=== PATIENT | female | born 1935 | race Caucasian/White ===

== ENCOUNTER → 2016-12-11 | Outpatient (CLI) | payer MEDICARE, OTHER ==
[2016-09-28 11:25] VITALS: BP 201/89
[~2016-12-11] MED LIST: ASPI-482 PO; CALC600T4 PO; HYDR-971 PO; LEVO75TA PO; LOVA20TA2 PO; MULT-658 PO; NAPR220C4 PO; NIFE10CA2 PO; NIFE5POW MC
--- NOTE | 2016-12-11 13:13 | KCIC ---
Exam: Abdomen ultrasound Indication:Reason For Study Reason: generalized abdominal pain / Spl. Instructions: / History: Technique: Multiple realtime grayscale sonographic images were obtained over the abdomen. Static images were submitted for interpretation. Findings: Visualized portions of the pancreas are unremarkable. The IVC is patent. The aorta is normal in caliber. The liver is normal in size measuring 13.2 cm. The hepatic echotexture is within normal limits. No focal lesions are identified. The gallbladder is nondistended. There is no evidence for cholelithiasis. There is no wall thickening, or pericholecystic fluid. The common bile duct is within normal limits measuring 2 mm in diameter. The Right kidney is normal in size measuring 9.5 x 4.2 x 4.5 cm. There is no evidence for mass, nephrolithiasis, or hydronephrosis. The Left kidney is normal in size measuring 9.8 x 5.0 x 4.6 cm. There is a septated cyst in the lower pole measuring 6.0 centimeters. The spleen is normal in size measuring 8.0 cm. Splenic calcified granulomas are noted. No ascites is identified. Impression: There is a septated 6 centimeter left renal cyst. This is Bosniak category 2 F. Follow-up is advised. Electronically signed by: Roscoe Chahal (Dec 11, 2016 13:12:23)
== END | disposition home or self-care (01) ==
LOC: KCIC US 09:39
PROVIDERS: ATTEND Family Medicine
DX: R10.84 Generalized abdominal pain (principal); N28.1 Cyst of kidney, acquired
CPT/HCPCS: 76700

== ENCOUNTER → 2017-01-06 | Outpatient (CLI) | payer MEDICARE, OTHER ==
[2016-09-28 11:25] VITALS: BP 201/89
[~2017-01-06] MED LIST changes: +CONTRAST GIVEN MC PRN; +IOHEXOL 300 MG/ML 75 ML VIAL IV ONE
[2017-01-06 07:34] LABS: CREATININE 0.9 mg/dL (0.6-1.0); GFR 59.8
--- NOTE | 2017-01-06 10:10 | RAD ---
EXAM: CT abdomen/pelvis with and without contrast. HISTORY: Hematuria. Abdominal pain. TECHNIQUE: Computed tomography of the abdomen and pelvis was performed before and after the intravenous administration of 60 mL Isovue-370. COMPARISON: None. FINDINGS: Lung windows through the visualized portions of the bases reveal mild atelectasis. Bone windows reveal no suspicious lesions. There are changes of lumbar instrumented posterior fusion. There is a moderate to severe compression fracture at T11 with a residual open cleft. A mild compression fracture is suspected at T12, also likely subacute. There is a moderate compression fracture at L1 that appears chronic. There is grade 1 anterolisthesis at L4-5. Degenerative disc disease is severe diffusely. There is a moderate hiatal hernia. There are calcified granulomas in the liver and spleen. The gallbladder is unremarkable. There is a fluid density mass within the pancreatic uncinate process that measures 12 x 8 mm. No solid pancreatic lesion is seen. The pancreatic duct is not dilated. A nodule in the left adrenal gland measures 16 x 13 mm and 6 Hounsfield units in attenuation. This is consistent with a benign adenoma. A 2 mm nodule centrally in the right adrenal gland is also consistent with an adenoma. There are changes of mesh repair of the anterior abdominal wall. There are no pathologically enlarged lymph nodes. Diffuse colonic diverticulosis moderate without acute inflammation. The appendix is not inflamed. There are no solid renal lesions. A cyst at the left renal lower pole measures 4.6 x 3.2 cm. There are no renal or ureteral calculi. The ureters are segmentally opacified, but no urothelial lesions are seen. The bladder is unremarkable. IMPRESSION: 1. No solid renal lesions or clear urothelial lesions. No nephroureterolithiasis. 2. A moderate to severe compression fracture at T11 has a residual open cleft. Other compression deformities as above. 3. 12 mm fluid density mass within the pancreatic uncinate process. This is likely a cyst or sidebranch intraductal papillary mucinous neoplasm. MRCP with/without contrast could further evaluate at this size if long-term stability is not already known, versus follow-up in 6-12 months. 4. Bilateral adrenal nodules are consistent with benign adenomas. 5. Moderate hiatal hernia. *One or more of the following individualized dose reduction techniques were utilized for this examination: 1. Automated exposure control. 2. Adjustment of the mA and/or kV according to patient size. 3. Use of iterative reconstruction technique.
== END | disposition home or self-care (01) ==
LOC: CT 07:01
PROVIDERS: ATTEND Urology
DX: R10.9 Unspecified abdominal pain (principal); R31.9 Hematuria, unspecified
CPT/HCPCS: 36415; 74178; 82565; 84520; Q9967

== ENCOUNTER → 2017-01-10 | Outpatient (CLI) | payer MEDICARE, OTHER ==
[2016-09-28 11:25] VITALS: BP 201/89
[~2017-01-10] MED LIST changes: -CONTRAST GIVEN MC PRN; -IOHEXOL 300 MG/ML 75 ML VIAL IV ONE
--- NOTE | 2017-01-13 10:15 | RAD ---
MRCP, 01/10/2017: History: Epigastric pain, cystic pancreatic lesion Imaging of the upper abdomen was performed in axial and coronal planes utilizing a variety of imaging sequences including T2 weighted, fat suppressed T2 weighted and opposed phase gradient echo sequences. 2-D and 3-D MRCP sequences were obtained with MIP reconstructions of the biliary tract produced. The gallbladder is unremarkable. The bile ducts are of normal caliber. No biliary tract calculi are seen. The pancreatic duct in the body and tail of the pancreas is of normal size. There is an 18 x 9 mm, slightly lobulated, cystic appearing structure present in the medial aspect of the pancreatic head involving the uncinate process, as also noted on the recent CT study. It lies adjacent to the distal pancreatic duct in the head of the pancreas. The pancreatic duct at this level is not clearly defined. A clear connection between this cystic structure in the distal pancreatic duct is not evident. Incidental note is made of a 4.2 cm cyst in the lower pole of the left kidney. There is an additional smaller 6 mm cyst also noted laterally. A small left adrenal nodule demonstrates signal dropout on the out of phase gradient-echo sequence compatible with a benign adenoma. Postsurgical changes are noted in the lumbar spine. IMPRESSION: 1. No biliary tract abnormality is detected. 2. Small cystic structure in the medial aspect of the pancreatic head which lies adjacent to the distal pancreatic duct. Diagnostic considerations include a sidebranch IPMN(Intraductal papillary mucinous neoplasm) versus a simple pancreatic cyst. MR imaging with contrast may be useful for further characterization, if clinically indicated. At this age, CT surveillance may be a reasonable alternative.
== END | disposition home or self-care (01) ==
LOC: MRI 07:32
PROVIDERS: ATTEND Internal Medicine Gastroenterology
DX: R10.13 Epigastric pain (principal)
CPT/HCPCS: 74181

== ENCOUNTER → 2017-01-17 | Day surgery (SDC) | payer MEDICARE, OTHER ==
[~2017-01-17] MED LIST changes: +CHLO25TA PO; +FENTANYL PF 100 MCG/2 ML VIAL. IV PRN; +HYDROMORPHONE 2 MG/ML VIAL. IV PRN; +IV RINGERS,LACTATED 1000ML 1,000 ML IV SCH; +LIDOCAINE 1% 1 ML SYRINGE. ID PRN; +LIDOCAINE 2% PF Vial for OR 5 ML VIAL. ONE; +MORPHINE SULFATE 2 MG/ML DISP.SYRIN. IV PRN; +NIFE30TA2 PO; +ONDANSETRON PF 4 MG/2 ML VIAL. IV PRN; +PROCHLORPERAZINE 10 MG/2 ML VIAL. IV PRN; +PROPOFOL 20 ML IV ONE
[2017-01-17 07:34] VITALS: BP 150/75
== END | disposition home or self-care (01) ==
LOC: ENDOS 06:03
PROVIDERS: ATTEND Internal Medicine Gastroenterology
DX: K29.50 Unspecified chronic gastritis without bleeding (principal); E78.00 Pure hypercholesterolemia, unspecified; I10 Essential (primary) hypertension; K21.9 Gastro-esophageal reflux disease without esophagitis; M19.90 Unspecified osteoarthritis, unspecified site; E03.9 Hypothyroidism, unspecified; Z96.653 Presence of artificial knee joint, bilateral; Z87.39 Personal history of other diseases of the musculoskeletal system and connective tissue; Z72.89 Other problems related to lifestyle; Z85.3 Personal history of malignant neoplasm of breast
CPT/HCPCS: 43235; J2704

== ENCOUNTER 2017-03-05 10:21 | Inpatient (IN) | payer MEDICARE, OTHER ==
[2017-03-05] VITALS (9 sets, daily range): BP systolic 133–161; BP diastolic 60–73
[~2017-03-05] VITALS: Ht 152.4 cm; Wt 66.4 kg
[~2017-03-05 10:21] MED LIST changes: +CEFAZOLIN 2GM PREMIX 50 ML IV ONE; -HYDROMORPHONE 2 MG/ML VIAL. IV PRN; +HYDROmorphone 2 MG/ML VIAL IV PRN; -LIDOCAINE 2% PF Vial for OR 5 ML VIAL. ONE; -PROPOFOL 20 ML IV ONE
[2017-03-05] MEDS ORDERED: CEFAZOLIN 2GM PREMIX 50 ML IV ONE (11:36)
[2017-03-05] MEDS ORDERED: SEVOFLURANE 61 TO 120 MINUTES. IH ONE (11:39)
[2017-03-05] MEDS ORDERED: GLYCOPYRROLATE 1 MG/5 ML VIAL. ONE (11:40)
[2017-03-05] MEDS ORDERED: FENTANYL PF 100 MCG/2 ML VIAL. ONE (11:40)
[2017-03-05] MEDS ORDERED: ONDANSETRON PF 4 MG/2 ML VIAL. ONE (11:41)
[2017-03-05] MEDS ORDERED: ROCURONIUM 50 MG/5 ML VIAL. ONE (11:41)
[2017-03-05] MEDS ORDERED: DEXAMETHASONE SOD PHOS 20 MG/5 ML VIAL. ONE (11:41)
[2017-03-05] MEDS ORDERED: LIDOCAINE 2% 100 MG/5 ML SYRINGE. ONE (11:41)
[2017-03-05] MEDS ORDERED: NEOSTIGMINE METHYLSULFATE 5 MG/5 ML SYRINGE. ONE (11:41)
[2017-03-05] MEDS ORDERED: BUPIVAC MPF-EPI 0.5%-1:200000 30 ML VIAL. ONE (11:52)
--- NOTE | 2017-03-05 12:22 | PDOC ---
SURGICAL PROGRESS NOTE Subjective Pre-Op Note 81 yo F with periumbilical pain and Left sided pain TO OR for lap exploration and removal of mesh R/B/A d/w pt and pt's family Office note H&P reviewed and unchanged Vital Signs Vital Signs Date Time Temp Pulse Resp B/P Pulse Ox O2 Delivery O2 Flow Rate FiO2 03/05/17 11:00 98.5 81 20 179/90 97 Room Air 98.5 KATHLEEN DUMONT MD Mar 05, 2017 12:22
[2017-03-05] MEDS ORDERED: PHENYLEPHRINE in 0.9% NACL PF 1 MG/10 ML DISP.SYRIN. IV ONE (12:25)
[2017-03-05] MEDS ORDERED: LABETALOL 20 MG/4 ML DISP.SYRIN. ONE (13:20)
[2017-03-05] MEDS: IV NORMAL SALINE 1000ML BAG 1,000 ML IV SCH (13:26)
[2017-03-05] MEDS: IV RINGERS,LACTATED 1000ML 1,000 ML IV SCH ×2 (13:26→23:26)
[2017-03-05] MEDS ORDERED: NALOXONE 0.4 MG/ML VIAL. IV PRN (13:30)
[2017-03-05] MEDS: ENOXAPARIN 40 MG/0.4 ML SYRINGE. SQ SCH (13:30)
[2017-03-05] MEDS ORDERED: ONDANSETRON PF 4 MG/2 ML VIAL. IV PRN (13:30)
[2017-03-05] MEDS ORDERED: 0.9 % SODIUM CHLORIDE 10 ML DISP.SYRIN. IV PRN (13:30)
--- NOTE | 2017-03-05 13:36 | PDOC ---
BRIEF OPERATIVE NOTE Pre-Op Diagnosis abd pain Post-Op Diagnosis same Procedure Performed laparoscopic converted to open exploration, removal of mesh, enterotomy repair Surgeon Stuart Anesthesia Type: General, Local Blood Loss 50 IV Fluid 750 Specimens Obtained mesh Findings adherent mesh to bowel Complications enterotomy (mesh removal) Additional Remarks [id number] KATHLEEN DUMONT MD Mar 05, 2017 13:36
[2017-03-05] MEDS: FENTANYL PF 100 MCG/2 ML VIAL. IV PRN ×2 (13:45→13:55)
--- NOTE | 2017-03-05 14:57 | RAD ---
Portable abdomen, 03/05/2017: History: NG tube placement An NG tube is in place extending into the lateral aspect of the proximal body of the stomach. The abdominal gas pattern is unremarkable. There is no evidence of organomegaly. Calcified splenic and hepatic granulomata are present in the upper abdomen. Postsurgical changes are again noted in the lower lumbar spine. IMPRESSION: 1. The NG tube extends into the body of the stomach. 2. No acute abdominal abnormality is detected.
--- NOTE | 2017-03-05 23:35 | OP ---
DATE OF SURGERY: 03/05/2017 REFERRING PHYSICIAN: Dr. Nino Miramontes. PREOPERATIVE DIAGNOSIS: Abdominal pain. POSTOPERATIVE DIAGNOSIS: Abdominal pain, adherent mesh. PROCEDURES: Laparoscopic converted open exploration, lysis of adhesions, removal of old mesh, enterotomy repair. SURGEON: Tres Davidson M.D. ESTIMATED BLOOD LOSS: 50 mL. IV FLUIDS: 750 mL. COMPLICATIONS: Enterotomy necessary for mesh removal. INDICATIONS: An 81-year-old female presents with complaints of abdominal pain ____ appears to be associated with her previous abdominal wall mesh. Subsequently, it was felt patient best be served by laparoscopic versus open exploration, and removal of old mesh adhesion. The patient and patient's were informed of risks, benefits, and alternatives to procedure, risks including but not limited to bleeding, infection, damage to surrounding structures, risk of anesthesia, risk of an open procedure, and risk of hernia recurrence. The patient and patient's appeared to understanding, their insightful questions were answered and they agreed to proceed. PROCEDURE IN DETAIL: After obtaining informed consent, the patient was taken to the operating room, induced under general endotracheal anesthetic. The patient was prepped and draped in the usual fashion of the anterior abdominal wall. Half percent Marcaine with epinephrine was injected in the right lower quadrant. Incision was made using 15 blade scalpel. A 5-mm nonbladed trocar was introduced in the abdominal cavity under vision of laparoscope and pneumoperitoneum was established. Additional 5 mm port was placed in the right upper quadrant, all under direct vision of laparoscope. The abdominal cavity was explored. There were extensive adhesions of the small bowel and omentum to the mesh and the middle abdomen. The remaining abdomen was unremarkable and there was no evidence of pathology aside from this. Specifically, there was no evidence of pathology in the left side of the abdomen, which is concerning for possible source of pain to the patient. Given these findings, it was felt patient best be served by removal of old mesh and lysis of adhesions. Small medium-sized midline incision was made using electrocautery. Subcutaneous tissue was divided using electrocautery. The mesh was immediately encountered and was carefully and sharply dissected out circumferentially moving off the fascia anteriorly. There was specifically a small ____ on the left side which appeared to be clearly distal ileum, although not terminal ileum which is already adherent to the small bowel, this still required an enterotomy to resect this off the underlying mesh. The mesh was removed, passed off field and sent to pathology for evaluation. The small enterotomy was then repaired using multiple interrupted 3-0 Vicryl stitches. There was no evidence of leakage from this. The small bowel was run from ligament of Treitz to terminal ileum, found to be no evidence of other pathology. The transverse colon was the area that was uninvolved, although I did have evidence of diverticulosis. The omentum had been very much involved in the process. Hemostasis was obtained using electrocautery. There was no evidence of bleeding or other pathology at the time of closure. All bowel was returned to the abdominal cavity. The fascia was reapproximated in midline using 2 looped 0 PDS stitches in continuous fashion. Subcutaneous tissues were reapproximated using 3-0 Vicryl. Skin incisions were reapproximated using 4-0 Monocryl in subcuticular fashion. Sterile dressings were placed over the wound. The patient tolerated the procedure well and sent to recovery room in stable condition. All counts were corrected. There were no immediate complications aside from the enterotomy. Thank you for allowing me to participate in the care of this pleasant patient. LEIGHTON GARRETT MD DR: MILLICENT/cameron JOB#: [id number] / [id number] Nino Bro MD
[2017-03-06 03:23] VITALS: BP 158/76
[2017-03-06 04:51] LABS: BASO % 0 % (0-3); EOS % 0 % (0-3); HEMATOCRIT 37.8 % (36.0-47.0); HEMOGLOBIN 12.5 g/dL (12.0-15.5); LYMPH # 0.9 x10^3/uL (1.0-4.8); LYMPH % 7 % (24-48); MEAN CORPUSCULAR HEMOGLOBIN 30 pg (25-35); MEAN CORPUSCULAR HGB CONC 33 g/dL (31-37); MEAN CORPUSCULAR VOLUME 90 fL (79-100); MONO % 8 % (0-9); NEUT % 86 % (31-73); PLATELET COUNT 192 x10^3/uL (140-400); RED BLOOD COUNT 4.22 x10^6/uL (3.50-5.40); RED CELL DISTRIBUTION WIDTH 14.2 % (11.5-14.5); WHITE BLOOD COUNT 13.3 x10^3/uL (4.0-11.0)
[2017-03-06 05:43] LABS: CALCIUM 8.7 mg/dL (8.5-10.1); CREATININE 0.8 mg/dL (0.6-1.0); GFR 68.5; POTASSIUM 3.6 mmol/L (3.5-5.1)
[2017-03-06 07:00] VITALS: BP 158/68
[2017-03-06 07:56] LABS: PLT ESTIMATE ADEQUATE (ADEQUATE)
[2017-03-06 07:57] LABS: OVALOCYTES FEW
--- NOTE | 2017-03-06 08:51 | PDOC ---
SURGICAL PROGRESS NOTE Subjective pain managed urinating no nausea Vital Signs Vital Signs Date Time Temp Pulse Resp B/P Pulse Ox O2 Delivery O2 Flow Rate FiO2 03/06/17 07:00 98.4 85 20 158/68 93 Room Air 98.4 03/06/17 03:23 2.0 I&O Intake and Output 03/06/17 06:59 Intake Total 850 ml Output Total 260 ml Balance 590 ml Intake Oral 0 ml IV Total 850 ml Output Urine Total 210 ml Estimated Blood Loss 50 ml # Voids 7 PATIENT HAS A MONGE: No General: Alert, Oriented X3, Cooperative, No acute distress HEENT: Other (NG tannish drainage ) Abdomen: Soft, Other (incision dressing dry, incisional TTP) Labs Laboratory Tests Test 03/06/17 04:06 White Blood Count 13.3x10^3/uL (4.0-11.0) Red Blood Count 4.22x10^6/uL (3.50-5.40) Hemoglobin 12.5g/dL (12.0-15.5) Hematocrit 37.8% (36.0-47.0) Mean Corpuscular Volume 90fL (79-100) Mean Corpuscular Hemoglobin 30pg (25-35) Mean Corpuscular Hemoglobin Concent 33g/dL (31-37) Red Cell Distribution Width 14.2% (11.5-14.5) Platelet Count 192x10^3/uL (140-400) Neutrophils (%) (Auto) 86% (31-73) Lymphocytes (%) (Auto) 7% (24-48) Monocytes (%) (Auto) 8% (0-9) Eosinophils (%) (Auto) 0% (0-3) Basophils (%) (Auto) 0% (0-3) Neutrophils # (Auto) 11.4x10^3uL (1.8-7.7) Lymphocytes # (Auto) 0.9x10^3/uL (1.0-4.8) Monocytes # (Auto) 1.0x10^3/uL (0.0-1.1) Eosinophils # (Auto) 0.0x10^3/uL (0.0-0.7) Basophils # (Auto) 0.0x10^3/uL (0.0-0.2) Segmented Neutrophils % 83% (35-66) Band Neutrophils % 6% (0-9) Lymphocytes % 4% (24-48) Monocytes % 7% (0-10) Platelet Estimate Adequate (ADEQUATE) Ovalocytes Few Sodium Level 143mmol/L (136-145) Potassium Level 3.6mmol/L (3.5-5.1) Chloride Level 106mmol/L (98-107) Carbon Dioxide Level 27mmol/L (21-32) Anion Gap 10 (6-14) Blood Urea Nitrogen 13mg/dL (7-20) Creatinine 0.8mg/dL (0.6-1.0) Estimated GFR (Cockcroft-Gault) 68.5 Glucose Level 132mg/dL (70-99) Calcium Level 8.7mg/dL (8.5-10.1) Laboratory Tests Test 03/06/17 04:06 White Blood Count 13.3x10^3/uL (4.0-11.0) Red Blood Count 4.22x10^6/uL (3.50-5.40) Hemoglobin 12.5g/dL (12.0-15.5) Hematocrit 37.8% (36.0-47.0) Mean Corpuscular Volume 90fL (79-100) Mean Corpuscular Hemoglobin 30pg (25-35) Mean Corpuscular Hemoglobin Concent 33g/dL (31-37) Red Cell Distribution Width 14.2% (11.5-14.5) Platelet Count 192x10^3/uL (140-400) Neutrophils (%) (Auto) 86% (31-73) Lymphocytes (%) (Auto) 7% (24-48) Monocytes (%) (Auto) 8% (0-9) Eosinophils (%) (Auto) 0% (0-3) Basophils (%) (Auto) 0% (0-3) Neutrophils # (Auto) 11.4x10^3uL (1.8-7.7) Lymphocytes # (Auto) 0.9x10^3/uL (1.0-4.8) Monocytes # (Auto) 1.0x10^3/uL (0.0-1.1) Eosinophils # (Auto) 0.0x10^3/uL (0.0-0.7) Basophils # (Auto) 0.0x10^3/uL (0.0-0.2) Segmented Neutrophils % 83% (35-66) Band Neutrophils % 6% (0-9) Lymphocytes % 4% (24-48) Monocytes % 7% (0-10) Platelet Estimate Adequate (ADEQUATE) Ovalocytes Few Sodium Level 143mmol/L (136-145) Potassium Level 3.6mmol/L (3.5-5.1) Chloride Level 106mmol/L (98-107) Carbon Dioxide Level 27mmol/L (21-32) Anion Gap 10 (6-14) Blood Urea Nitrogen 13mg/dL (7-20) Creatinine 0.8mg/dL (0.6-1.0) Estimated GFR (Cockcroft-Gault) 68.5 Glucose Level 132mg/dL (70-99) Calcium Level 8.7mg/dL (8.5-10.1) Problem List Problems Medical Problems: (1) Abdominal pain Status: Acute Assessment/Plan POD#1 lap converted to open exploration, mesh removal, enterotomy repair continue NG, await bowel function ambulate PT/OT Problems: [employer] Mar 06, 2017 08:51
[2017-03-06] MEDS ORDERED: PHENOL ORAL SPRAY 177ML BOTTLE. PO PRN (10:45)
[2017-03-06 11:00] VITALS: BP 161/67
[2017-03-06] MEDS: IV RINGERS,LACTATED 1000ML 1,000 ML IV SCH ×2 (11:31→20:14)
--- NOTE | 2017-03-06 12:55 | PATHOLOGY ---
PATHOLOGY REPORT * * * * * * * * FINAL DIAGNOSIS: Segment of mesh, clinically from abdomen (Gross only). (JPM:mgpadmini; d/t: 03/06/17) REPORT ELECTRONICALLY SIGNED BY: Lucas Rivero M.D. DATE/TIME: 03/06/2017 12:54 * * * * * * * * GROSS PATHOLOGY: The specimen is received in formalin labeled "Jose Luis Deshpande, brian". Received is a segment of white-dunham mesh with attached pink-hooks to yellow-dunham soft tissue measuring 9.2 x 7.5 x 2.1 cm in aggregate dimensions. Gross photographs are taken. Sections are not submitted. (CAA; 03/06/2017) INITIAL CPT CODE(S): A; 90375 Professional services performed by [email or web address] [place] [address] Technical services performed by [facility] at [address] [place] [address]. SPECIMEN(S) RECEIVED: A.Mesh CLINICAL HISTORY: Abdominal pain, retained mesh PATIENT: JOSE LUIS DESHPANDE /AGE: 806/28/1935 (Age: 81) PATIENT #: [id number] ALT CASE #: SPECIMEN COLLECTION DATE: 03/05/2017 SPECIMEN RECEIVED DATE: 03/05/2017 [facility] - [address] [place] [address] - PHONE: [phone] * * * END OF REPORT * * *
[2017-03-06] MEDS: IV NORMAL SALINE 1000ML BAG 1,000 ML IV SCH (13:26)
[2017-03-06] MEDS: ENOXAPARIN 40 MG/0.4 ML SYRINGE. SQ SCH (13:51)
[2017-03-06 14:53] VITALS: BP 189/94
--- NOTE | 2017-03-06 17:00 | OP ---
DATE OF SURGERY: 03/05/2017 REFERRING PHYSICIAN: Dr. Nino Miramontes. PREOPERATIVE DIAGNOSIS: Abdominal pain. POSTOPERATIVE DIAGNOSIS: Abdominal pain, adherent mesh. PROCEDURES: Laparoscopic converted open exploration, lysis of adhesions, removal of old mesh, enterotomy repair. SURGEON: Tres Dumont M.D. ESTIMATED BLOOD LOSS: 50 mL. IV FLUIDS: 750 mL. COMPLICATIONS: Enterotomy necessary for mesh removal. INDICATIONS: An 81-year-old female presents with complaints of abdominal pain which appears to be associated with her previous abdominal wall mesh. Subsequently, it was felt patient best be served by laparoscopic versus open exploration, and removal of old mesh adhesion. The patient and patient's were informed of risks, benefits, and alternatives to procedure, risks including but not limited to bleeding, infection, damage to surrounding structures, risk of anesthesia, risk of an open procedure, and risk of hernia recurrence. The patient and patient's appeared to understanding, their insightful questions were answered and they agreed to proceed. PROCEDURE IN DETAIL: After obtaining informed consent, the patient was taken to the operating room, induced under general endotracheal anesthetic. The patient was prepped and draped in the usual fashion of the anterior abdominal wall. Half percent Marcaine with epinephrine was injected in the right lower quadrant. Incision was made using 15 blade scalpel. A 5-mm nonbladed trocar was introduced in the abdominal cavity under vision of laparoscope and pneumoperitoneum was established. Additional 5 mm port was placed in the right upper quadrant, all under direct vision of laparoscope. The abdominal cavity was explored. There were extensive adhesions of the small bowel and omentum to the mesh and the middle abdomen. The remaining abdomen was unremarkable and there was no evidence of pathology aside from this. Specifically, there was no evidence of pathology in the left side of the abdomen, which is concerning for possible source of pain to the patient. Given these findings, it was felt patient best be served by removal of old mesh and lysis of adhesions. Small medium-sized midline incision was made using electrocautery. Subcutaneous tissue was divided using electrocautery. The mesh was immediately encountered and was carefully and sharply dissected out circumferentially moving off the fascia anteriorly. There was specifically a small area on the left side of the mesh which appeared to be clearly distal ileum, although not terminal ileum which is already adherent to the small bowel, this still required an enterotomy to resect this off the underlying mesh. The mesh was removed, passed off field and sent to pathology for evaluation. The small enterotomy was then repaired using multiple interrupted 3-0 Vicryl stitches. There was no evidence of leakage from this. The small bowel was run from ligament of Treitz to terminal ileum, found to be no evidence of other pathology. The transverse colon was the area that was uninvolved, although I did have evidence of diverticulosis. The omentum had been very much involved in the process. Hemostasis was obtained using electrocautery. There was no evidence of bleeding or other pathology at the time of closure. All bowel was returned to the abdominal cavity. The fascia was reapproximated in midline using 2 looped 0 PDS stitches in continuous fashion. Subcutaneous tissues were reapproximated using 3-0 Vicryl. Skin incisions were reapproximated using 4-0 Monocryl in subcuticular fashion. Sterile dressings were placed over the wound. The patient tolerated the procedure well and sent to recovery room in stable condition. All counts were corrected. There were no immediate complications aside from the enterotomy. Thank you for allowing me to participate in the care of this pleasant patient. TRES DUMONT MD DR: KEVIN/cameron JOB#: [id number] / [id number] Nino Bro MD MTDD
--- NOTE | 2017-03-06 18:58 | ACF ---
Admission Forms Criteria ABDOMINAL PAIN Clinical Indications for Admission to Inpatient Care (Place 'X' for any and all applicable criteria): Admission is indicated for ANY ONE of the following(1)(2)(3)(4)(5): [ ]I. Inpatient admission required rather than observation care (Also use Abdominal Pain: Observation Care, as appropriate) because of ANY ONE of the following: [ ]a) Severe pain requiring acute inpatient management [ ]b) Identification of etiology/finding that requires inpatient care (eg, aortic dissection, free air) [ ]c) Absent bowel sounds with complete ileus(6) [ ]d) Suspected toxic megacolon [ ]e) Severe electrolyte abnormalities requiring inpatient care [ ]f) High fever or infection requiring inpatient admission as indicated by ANY ONE of following(7)(8): [ ] i) Appropriate outpatient or observational care antimicrobial treatment unavailable, not effective, or not feasible [ ] ii) Documented bacteremia [ ] iii) Temperature > 104.9 degrees F (oral) [ ] iv) T >103.1 F (oral) or < 96.8 F(rectal) that does not respond to all emergency treatment measures [ ]g) Signs of intestinal obstruction [B] [ ]h) Hemodynamic instability [ ]i) IV fluid to replace significant ongoing losses (greater than 3 L/m2 per day) (12)(13) [ ]j) Percutaneous or open drainage (eg, abscess, biliary tract ) procedures [ ]k) Parenteral nutrition regimen that must be implemented on inpatient basis [ ]l) Other condition,treatment or monitoring requiring inpatient admission. [ ]II. Peritoneal signs present [X]III. Surgery needed that cannot be performed on an ambulatory basis. [ ]IV. Evaluation requires patient to not eat or drink for extended period ( eg, more than 24 hours). [ ]V. Contraindications and/or Inappropriate clinical situations for Observational Care in patients with abdominal pain, when ANY ONE of the following is required: [ ]a) Thorough evaluation is required to prevent catastrophic events due to delays in diagnosing (e.g.Mesenteric ischemia) 1,3 [ ]b) Patient with severe pathology or with chronic symptoms unlikely to improve in the ED stay (3) [ ]. General contraindications and/or Inappropriate clinical situations for Observational Care in patients with abdominal pain, when ANY ONE of the following is required: [ ]a) Prediction of prolongation of LOS based on ANY ONE of the following may be considered as a contraindication for observational care 2, 3, 4, 5, 6, 7, 8, 9, 10, 11 [ ]i) Age > 65 yrs. [ ]ii) Patient arriving by ambulance [ ]iii) Patient with high acuity [ ]iv) Patient requiring vital sign monitoring [ ]v) Patient on IV medication [ ]b) Systolic blood pressures 180mmHg 3,12 [ ]c) Patient with altered mental status including delirium and other alteration of consciousness, (3) [ ]d) Patient whose discharge disposition will be to a shelter home or rehabilitation home should not be managed in Emergency Department Observation Unit. CMS rule requires 3 days hospital stay before such placement.3,13 [ ]e) Patient with failure to thrive due to broad array of etiologies 3,16,17 [ ]f) Inability to ambulate 3,14 Extended stay beyond goal length of stay may be needed for(2)(3): [ ]a) Persistent abdominal pain with suspected intra-abdominal process [ ]b) Diagnosed condition requiring continued stay (e.g., pancreatitis, complicated diverticulitis) [ ]c) Surgery (e.g., colectomy) The original [facility] content created by [employer] has been revised. The portions of the content which have been revised are identified through the use of italic text or in bold, and [facility] has neither reviewed nor approved the modified material.All other unmodified content is copyright [facility]. Please see references footnoted in the original [facility] edition 2016 Admission Criteria Met?: Yes SAWYER ROBERTS Mar 06, 2017 18:58 KATHLEEN DUMONT MD Mar 07, 2017 10:45
[2017-03-06 19:00] VITALS: BP 187/96
[2017-03-06] MEDS: LABETALOL 20 MG/4 ML DISP.SYRIN. IVP PRN (20:07)
[2017-03-06] MEDS: FENTANYL PF 100 MCG/2 ML VIAL. IV PRN (20:14)
[2017-03-06 23:00] VITALS: BP 179/79
[2017-03-07] VITALS (7 sets, daily range): BP systolic 168–191; BP diastolic 74–100
[2017-03-07] MEDS: LABETALOL 20 MG/4 ML DISP.SYRIN. IVP PRN ×3 (03:07→20:37)
--- NOTE | 2017-03-07 05:32 | CONS ---
DATE OF CONSULTATION: 03/06/2017 REASON FOR CONSULTATION: Management of hypertension. HISTORY OF PRESENT ILLNESS AND HOSPITAL COURSE: This patient is an 81-year-old female who underwent abdominal surgery to remove mesh and adhesions. She is postop day #1. She is still n.p.o. and requiring blood pressure management. The patient's blood pressure is stable without medications with highs of 160s/90s. She was prescribed IV labetalol on a p.r.n. basis for blood pressures greater than 180/105. The patient otherwise is having an uncomplicated postoperative course. She is still n.p.o. with and NG tube in place, awaiting for bowel activity. 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 She is not passing gas. Her only complaint is her NG tube. The patient is postop day 1. PAST MEDICAL HISTORY: Significant for: 1. Osteoarthritis. 2. Hypertension. 3. Hypothyroidism. 4. History of breast cancer in remission. 5. Major depression. 6. Osteopenia. 7. Osteoarthritis of the neck. PAST SURGICAL HISTORY: Significant for total right knee arthroplasty as well as total left knee arthroplasty, cataract removal and right mastectomy. FAMILY HISTORY: Noncontributory. SOCIAL HISTORY: The patient has never smoked. She does not use alcohol. She has excellent family support and lives with her spouse, two daughters who lives at town are present today during interview. REVIEW OF SYSTEMS: The patient was admitted for elective surgery by ____ due to persistent abdominal pain complaints and history of mesh replacement. PHYSICAL EXAMINATION: GENERAL: This is a well-nourished, well-developed female in no apparent distress. On my exam, she is alert and oriented x 3. HEENT: Benign with NG tube placement. NECK: Supple, without JVD or bruit. CARDIAC: Regular rate and rhythm. LUNGS: Clear. ABDOMEN: Exhibited bowel sounds on my exam. She denies passing gas at this point. EXTREMITIES: Showed 2+ pulses without significant edema. NEUROLOGIC: Showed no unilateral findings. ASSESSMENT: 1. Postop day #1 after mesh removal and lysis of adhesions without bowel resection. 2. Underlying hypertension. PLAN: To proceed with IV hypertension control, wean pain medication and increase activity and we start p.o. blood pressure medicines once able to tolerate diet. REGINA ESCUDERO MD DR: Rubi JOB#: [id number] / [id number]
[2017-03-07] MEDS: IV RINGERS,LACTATED 1000ML 1,000 ML IV SCH ×2 (08:51→15:49)
--- NOTE | 2017-03-07 09:56 | PDOC ---
JUN BECK TALENT ANALYST 03/07/17 0956: SURGICAL PROGRESS NOTE Subjective no flatus sitting up pain managed Vital Signs Vital Signs Date Time Temp Pulse Resp B/P Pulse Ox O2 Delivery O2 Flow Rate FiO2 03/07/17 08:52 94 189/100 03/07/17 07:35 Room Air 03/07/17 07:00 98.8 18 93 98.8 03/06/17 20:14 2.0 I&O Intake and Output 03/07/17 07:00 Intake Total 0 ml Output Total 325 ml Balance -325 ml Intake Oral 0 ml Gastric Drainage Total 325 ml # Voids 5 General: Alert, Oriented X3, Cooperative, No acute distress HEENT: Other (ng bilious--still large amount out) Abdomen: Soft, Other (dressing dry) Labs Laboratory Tests Test 03/06/17 04:06 White Blood Count 13.3x10^3/uL (4.0-11.0) Red Blood Count 4.22x10^6/uL (3.50-5.40) Hemoglobin 12.5g/dL (12.0-15.5) Hematocrit 37.8% (36.0-47.0) Mean Corpuscular Volume 90fL (79-100) Mean Corpuscular Hemoglobin 30pg (25-35) Mean Corpuscular Hemoglobin Concent 33g/dL (31-37) Red Cell Distribution Width 14.2% (11.5-14.5) Platelet Count 192x10^3/uL (140-400) Neutrophils (%) (Auto) 86% (31-73) Lymphocytes (%) (Auto) 7% (24-48) Monocytes (%) (Auto) 8% (0-9) Eosinophils (%) (Auto) 0% (0-3) Basophils (%) (Auto) 0% (0-3) Neutrophils # (Auto) 11.4x10^3uL (1.8-7.7) Lymphocytes # (Auto) 0.9x10^3/uL (1.0-4.8) Monocytes # (Auto) 1.0x10^3/uL (0.0-1.1) Eosinophils # (Auto) 0.0x10^3/uL (0.0-0.7) Basophils # (Auto) 0.0x10^3/uL (0.0-0.2) Segmented Neutrophils % 83% (35-66) Band Neutrophils % 6% (0-9) Lymphocytes % 4% (24-48) Monocytes % 7% (0-10) Platelet Estimate Adequate (ADEQUATE) Ovalocytes Few Sodium Level 143mmol/L (136-145) Potassium Level 3.6mmol/L (3.5-5.1) Chloride Level 106mmol/L (98-107) Carbon Dioxide Level 27mmol/L (21-32) Anion Gap 10 (6-14) Blood Urea Nitrogen 13mg/dL (7-20) Creatinine 0.8mg/dL (0.6-1.0) Estimated GFR (Cockcroft-Gault) 68.5 Glucose Level 132mg/dL (70-99) Calcium Level 8.7mg/dL (8.5-10.1) Problem List Problems Medical Problems: (1) Abdominal pain Status: Acute Assessment/Plan POD#2 lap converted to open exploration, mesh removal, enterotomy repair continue NG today await return of bowel fx HTN--pcp managing Problems: KATHLEEN DUMONT MD 03/07/17 1600: SURGICAL PROGRESS NOTE Assessment/Plan Pt now passing flatus abd soft, pt denies pain will d/c NGT, start clears Problems: JUN BECK APRN Mar 07, 2017 09:56 KATHLEEN DUMONT MD Mar 07, 2017 16:00
[2017-03-07] MEDS: IV NORMAL SALINE 1000ML BAG 1,000 ML IV SCH (11:21)
[2017-03-07] MEDS: ENOXAPARIN 40 MG/0.4 ML SYRINGE. SQ SCH (11:57)
[2017-03-07] MEDS: ENALAPRILAT 2.5 MG/2 ML VIAL. IV SCH ×3 (12:49→23:17)
--- NOTE | 2017-03-07 17:41 | PDOC ---
PROGRESS NOTES Subjective Subjective Patient feeling better. 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 Patient still has not passed gas. Patient has moderate NG output. Patient's blood pressure starting to elevate off by mouth medications. IV medications use when necessary. Objective Objective Vital Signs Date Time Temp Pulse Resp B/P Pulse Ox O2 Delivery O2 Flow Rate FiO2 03/07/17 17:11 89 180/91 03/07/17 15:00 98.4 18 93 Room Air 98.4 03/06/17 20:14 2.0 Intake and Output 03/07/17 07:00 Intake Total 0 ml Output Total 325 ml Balance -325 ml Intake Oral 0 ml Gastric Drainage Total 325 ml # Voids 5 Physical Exam Abdomen: Normal bowel sounds Heart: Regular rate Extremities: No edema General: Alert Lungs: Clear to auscultation Assessment Assessment Problems Medical Problems: (1) Abdominal pain Status: Acute Postop day to mesh removal and lysis of adhesions. Essential hypertension Past medical history: 1. Osteoarthritis. 2. Hypertension. 3. Hypothyroidism. 4. History of breast cancer in remission. 5. Major depression. 6. Osteopenia. 7. Osteoarthritis of the neck. Plan Plan of Care Continue postop care. Clamp NG and appropriate per surgery Await bowel function and restart by mouth medications Comment Review of Relevant I have reviewed the following items liyah (where applicable) has been applied. Labs Laboratory Tests Test 03/06/17 04:06 White Blood Count 13.3x10^3/uL (4.0-11.0) Red Blood Count 4.22x10^6/uL (3.50-5.40) Hemoglobin 12.5g/dL (12.0-15.5) Hematocrit 37.8% (36.0-47.0) Mean Corpuscular Volume 90fL (79-100) Mean Corpuscular Hemoglobin 30pg (25-35) Mean Corpuscular Hemoglobin Concent 33g/dL (31-37) Red Cell Distribution Width 14.2% (11.5-14.5) Platelet Count 192x10^3/uL (140-400) Neutrophils (%) (Auto) 86% (31-73) Lymphocytes (%) (Auto) 7% (24-48) Monocytes (%) (Auto) 8% (0-9) Eosinophils (%) (Auto) 0% (0-3) Basophils (%) (Auto) 0% (0-3) Neutrophils # (Auto) 11.4x10^3uL (1.8-7.7) Lymphocytes # (Auto) 0.9x10^3/uL (1.0-4.8) Monocytes # (Auto) 1.0x10^3/uL (0.0-1.1) Eosinophils # (Auto) 0.0x10^3/uL (0.0-0.7) Basophils # (Auto) 0.0x10^3/uL (0.0-0.2) Segmented Neutrophils % 83% (35-66) Band Neutrophils % 6% (0-9) Lymphocytes % 4% (24-48) Monocytes % 7% (0-10) Platelet Estimate Adequate (ADEQUATE) Ovalocytes Few Sodium Level 143mmol/L (136-145) Potassium Level 3.6mmol/L (3.5-5.1) Chloride Level 106mmol/L (98-107) Carbon Dioxide Level 27mmol/L (21-32) Anion Gap 10 (6-14) Blood Urea Nitrogen 13mg/dL (7-20) Creatinine 0.8mg/dL (0.6-1.0) Estimated GFR (Cockcroft-Gault) 68.5 Glucose Level 132mg/dL (70-99) Calcium Level 8.7mg/dL (8.5-10.1) Medications Current Medications Cefazolin Sodium/ Dextrose (Ancef 2gm Premix) 50 ml @ 100 mls/hr 1X ONCE IV Last administered on 03/05/17 12:20; Start 03/05/17 at 06:00; Stop 03/05/17 at 06:29; Status DC Ondansetron HCl (Zofran) 4 mg PRN Q6HRS PRN IV NAUSEA/VOMITING; Start 03/05/17 at 07:00; Stop 03/06/17 at 06:59; Status DC Fentanyl Citrate (Fentanyl 2ml Vial) 25 mcg PRN Q5MIN PRN IV MILD PAIN; Start 03/05/17 at 07:00; Stop 03/06/17 at 06:59; Status DC Fentanyl Citrate (Fentanyl 2ml Vial) 50 mcg PRN Q5MIN PRN IV MODERATE PAIN Last administered on 03/05/17 13:55; Start 03/05/17 at 07:00; Stop 03/06/17 at 06:59; Status DC Morphine Sulfate 1 mg 1 mg PRN Q10MIN PRN IV SEVERE PAIN; Start 03/05/17 at 07: 00; Stop 03/06/17 at 06:59; Status DC Lactated Ringer's (Iv Lactated Ringers) 1,000 ml @ 30 mls/hr Q24H IV Last administered on 03/05/17 11:14; Start 03/05/17 at 07:00; Stop 03/05/17 at 18:59 ; Status DC Lidocaine HCl 2 ml PRN 1X PRN ID PRIOR TO IV START; Start 03/05/17 at 07:00; Stop 03/06/17 at 06:59; Status DC Hydromorphone HCl (Dilaudid) 0.5 mg PRN Q10MIN PRN IV SEV PAIN, Second choice Last administered on 03/05/17 14:24; Start 03/05/17 at 07:00; Stop 03/06/17 at 06:59; Status DC Prochlorperazine Edisylate 5 mg 5 mg PACU PRN PRN IV NAUSEA, MRX1; Start at 07:00; Stop 03/06/17 at 06:59; Status DC Cefazolin Sodium/ Dextrose (Ancef 2gm Premix) 50 ml @ As Directed STK-MED ONCE IV ; Start 03/05/17 at 11:36; Stop 03/05/17 at 11:37; Status DC Sevoflurane (Ultane) 60 ml STK-MED ONCE IH ; Start 03/05/17 at 11:39; Stop 03/05 at 11:40; Status DC Fentanyl Citrate (Fentanyl 2ml Vial) 100 mcg STK-MED ONCE .ROUTE ; Start at 11:40; Stop 03/05/17 at 11:41; Status DC Glycopyrrolate (Robinul) 1 mg STK-MED ONCE .ROUTE ; Start 03/05/17 at 11:40; Stop 03/05/17 at 11:41; Status DC Neostigmine Methylsulfate 5 mg STK-MED ONCE .ROUTE ; Start 03/05/17 at 11:41; Stop 03/05/17 at 11:42; Status DC Rocuronium [place] (Zemuron) 50 mg STK-MED ONCE .ROUTE ; Start 03/05/17 at 11:41 ; Stop 03/05/17 at 11:42; Status DC Dexamethasone Sodium Phosphate (Decadron) 20 mg STK-MED ONCE .ROUTE ; Start at 11:41; Stop 03/05/17 at 11:42; Status DC Ondansetron HCl (Zofran) 4 mg STK-MED ONCE .ROUTE ; Start 03/05/17 at 11:41; Stop 03/05/17 at 11:42; Status DC Lidocaine HCl (Lidocaine HCl 2% Abboject) 100 mg STK-MED ONCE .ROUTE ; Start at 11:41; Stop 03/05/17 at 11:42; Status DC Bupivacaine HCl/ Epinephrine Bitart (Sensorcain-Mpf Epi 0.5%-1:[id number]) 30 ml STK -MED ONCE .ROUTE Last administered on 03/05/17 12:35; Start 03/05/17 at 11:52 ; Stop 03/05/17 at 11:53; Status DC Phenylephrine HCl 1 mg STK-MED ONCE IV ; Start 03/05/17 at 12:25; Stop 03/05/17 at 12:26; Status DC Labetalol HCl (Normodyne) 20 mg STK-MED ONCE .ROUTE ; Start 03/05/17 at 13:20; Stop 03/05/17 at 13:21; Status DC Enoxaparin Sodium (Lovenox 40mg Syringe) 40 mg Q24H SQ Last administered on 11:57; Start 03/05/17 at 13:30 Sodium Chloride 3 ml 3 ml QSHIFT PRN IV AFTER MEDS AND BLOOD DRAWS; Start 03/05 at 13:30 Lactated Ringer's (Iv Lactated Ringers) 1,000 ml @ 100 mls/hr Q10H IV Last administered on 03/07/17 15:49; Start 03/05/17 at 13:26 Naloxone HCl 0.4 mg 0.4 mg PRN Q2MIN PRN IV SEE INSTRUCTIONS; Start 03/05/17 at 13:30 Sodium Chloride 1,000 ml @ 25 mls/hr Q24H IV Last administered on 03/05/17 13 :26; Start 03/05/17 at 13:26 Hydromorphone HCl (Dilaudid Standard BOARDER STEAM) 30 ml @ 0 mls/hr CONT PRN PRN IV PROTOCOL Last administered on 03/05/17 14:15; Start 03/05/17 at 13:30 Ondansetron HCl (Zofran) 4 mg PRN Q6HRS PRN IV NAUESA, 1ST CHOICE; Start at 13:30 Labetalol HCl (Normodyne) 10 mg PRN Q4HRS PRN IVP HYPERTENSION, SEE COMMENTS Last administered on 03/07/17 08:52; Start 03/05/17 at 17:45; Stop 03/07/17 at 12:13; Status DC Throat Lozenges (Chloraseptic) 1 spray PRN Q2HR PRN PO SORE THROAT; Start 03/06 at 10:45 Fentanyl Citrate (Fentanyl 2ml Vial) 50 mcg PRN Q2HR PRN IV PAIN Last administered on 03/06/17 20:14; Start 03/06/17 at 13:00 Labetalol HCl (Normodyne) 20 mg PRN Q4HRS PRN IVP HYPERTENSION, SEE COMMENTS; Start 03/07/17 at 12:15 Enalaprilat (Vasotec) 2.5 mg Q6HRS IV Last administered on 03/07/17 17:11; Start 03/07/17 at 13:00 Active Scripts Active Reported Chlorthalidone 25 Mg Tablet 25 Mg PO DA Procardia Xl (Nifedipine) 30 Mg Tab.er.24 1 Tab PO DAILY Lovastatin 20 Mg Tablet 20 Mg PO DAILY Calcium (Calcium Carbonate) 600 Mg Tablet 600 Mg PO BID Centrum Silver Tablet (Multivits-Min/Fa/Lycopene/Lut) 1 Each Tablet 1 Each PO DAILY Synthroid (Levothyroxine Sodium) 75 Mcg Tablet 75 Mcg PO Vitals/I & O Vital Sign - Last 24 Hours 03/06/17 03/06/17 03/06/17 03/06/17 19:00 20:00 20:07 20:14 Temp 98.8 98.8 Pulse 92 95 Resp 18 20 B/P 187/96 189/94 Pulse Ox 91 92 O2 Delivery Room Air Nasal Cannula Nasal Cannula O2 Flow Rate 2.0 2.0 03/06/17 03/06/17 03/07/17 03/07/17 20:44 23:00 03:00 03:07 Temp 99.5 98.7 99.5 98.7 Pulse 90 106 86 Resp B/P 179/79 191/83 194/86 Pulse Ox 91 92 O2 Delivery Room Air Room Air Room Air 03/07/17 03/07/17 03/07/17 03/07/17 05:16 07:00 07:35 08:52 Temp 98.8 98.8 Pulse 76 94 94 Resp 18 B/P 168/74 189/100 189/100 Pulse Ox 93 O2 Delivery Room Air Room Air 03/07/17 03/07/17 03/07/17 03/07/17 11:00 12:49 15:00 17:11 Temp 97.9 98.4 97.9 98.4 Pulse 82 82 89 89 Resp 18 B/P 182/89 182/89 180/91 180/91 Pulse Ox 94 93 O2 Delivery Room Air Room Air Intake and Output 03/06/17 03/06/17 03/07/17 15:00 23:00 07:00 Intake Total 0 ml Output Total 325 ml Balance -325 ml 0 ml REGINA ESCUDERO MD Mar 07, 2017 17:41
[2017-03-07] MEDS: FENTANYL PF 100 MCG/2 ML VIAL. IV PRN (20:43)
[2017-03-08 03:00] VITALS: BP 158/73
[2017-03-08] MEDS: IV RINGERS,LACTATED 1000ML 1,000 ML IV SCH ×3 (05:08→19:12)
[2017-03-08] MEDS: ENALAPRILAT 2.5 MG/2 ML VIAL. IV SCH (05:08)
[2017-03-08 07:00] VITALS: BP 173/82
[2017-03-08] MEDS: LABETALOL 20 MG/4 ML DISP.SYRIN. IVP PRN (10:26)
[2017-03-08 11:00] VITALS: BP 151/73
--- NOTE | 2017-03-08 11:34 | PDOC ---
PROGRESS NOTES Subjective Subjective Patient reports she has had a bowel movement, feels better. Objective Objective Vital Signs Date Time Temp Pulse Resp B/P Pulse Ox O2 Delivery O2 Flow Rate FiO2 03/08/17 11:00 98.1 78 20 151/73 93 Room Air 98.1 03/06/17 20:14 2.0 Intake and Output 03/08/17 07:00 Intake Total 0 ml Output Total 800 ml Balance -800 ml Intake Oral 0 ml Gastric Drainage Total 800 ml # Voids 5 Physical Exam Abdomen: Normal bowel sounds, Soft, Other (dressing in place) Heart: Regular rate Extremities: No edema General: Alert, Oriented X3, No acute distress Lungs: Clear to auscultation Assessment Assessment Problems Medical Problems: (1) Abdominal pain Status: Acute Plan Plan of Care 1. POD #3 exploratory lap with mesh removal - doing well. NG out yesterday and tolerating clear liquid diet. Continue post-operative management per General Surgery. 2. HTN - resume home meds for better control. Check lytes in AM. 3. hypothyroidism - resume her usual dose of Levothyroxine. Comment Review of Relevant I have reviewed the following items liyah (where applicable) has been applied. Medications Current Medications Cefazolin Sodium/ Dextrose (Ancef 2gm Premix) 50 ml @ 100 mls/hr 1X ONCE IV Last administered on 03/05/17 12:20; Start 03/05/17 at 06:00; Stop 03/05/17 at 06:29; Status DC Ondansetron HCl (Zofran) 4 mg PRN Q6HRS PRN IV NAUSEA/VOMITING; Start 03/05/17 at 07:00; Stop 03/06/17 at 06:59; Status DC Fentanyl Citrate (Fentanyl 2ml Vial) 25 mcg PRN Q5MIN PRN IV MILD PAIN; Start 03/05/17 at 07:00; Stop 03/06/17 at 06:59; Status DC Fentanyl Citrate (Fentanyl 2ml Vial) 50 mcg PRN Q5MIN PRN IV MODERATE PAIN Last administered on 03/05/17 13:55; Start 03/05/17 at 07:00; Stop 03/06/17 at 06:59; Status DC Morphine Sulfate 1 mg 1 mg PRN Q10MIN PRN IV SEVERE PAIN; Start 03/05/17 at 07: 00; Stop 03/06/17 at 06:59; Status DC Lactated Ringer's (Iv Lactated Ringers) 1,000 ml @ 30 mls/hr Q24H IV Last administered on 03/05/17 11:14; Start 03/05/17 at 07:00; Stop 03/05/17 at 18:59 ; Status DC Lidocaine HCl 2 ml PRN 1X PRN ID PRIOR TO IV START; Start 03/05/17 at 07:00; Stop 03/06/17 at 06:59; Status DC Hydromorphone HCl (Dilaudid) 0.5 mg PRN Q10MIN PRN IV SEV PAIN, Second choice Last administered on 03/05/17 14:24; Start 03/05/17 at 07:00; Stop 03/06/17 at 06:59; Status DC Prochlorperazine Edisylate 5 mg 5 mg PACU PRN PRN IV NAUSEA, MRX1; Start at 07:00; Stop 03/06/17 at 06:59; Status DC Cefazolin Sodium/ Dextrose (Ancef 2gm Premix) 50 ml @ As Directed STK-MED ONCE IV ; Start 03/05/17 at 11:36; Stop 03/05/17 at 11:37; Status DC Sevoflurane (Ultane) 60 ml STK-MED ONCE IH ; Start 03/05/17 at 11:39; Stop 03/05 at 11:40; Status DC Fentanyl Citrate (Fentanyl 2ml Vial) 100 mcg STK-MED ONCE .ROUTE ; Start at 11:40; Stop 03/05/17 at 11:41; Status DC Glycopyrrolate (Robinul) 1 mg STK-MED ONCE .ROUTE ; Start 03/05/17 at 11:40; Stop 03/05/17 at 11:41; Status DC Neostigmine Methylsulfate 5 mg STK-MED ONCE .ROUTE ; Start 03/05/17 at 11:41; Stop 03/05/17 at 11:42; Status DC Rocuronium [place] (Zemuron) 50 mg STK-MED ONCE .ROUTE ; Start 03/05/17 at 11:41 ; Stop 03/05/17 at 11:42; Status DC Dexamethasone Sodium Phosphate (Decadron) 20 mg STK-MED ONCE .ROUTE ; Start at 11:41; Stop 03/05/17 at 11:42; Status DC Ondansetron HCl (Zofran) 4 mg STK-MED ONCE .ROUTE ; Start 03/05/17 at 11:41; Stop 03/05/17 at 11:42; Status DC Lidocaine HCl (Lidocaine HCl 2% Abboject) 100 mg STK-MED ONCE .ROUTE ; Start at 11:41; Stop 03/05/17 at 11:42; Status DC Bupivacaine HCl/ Epinephrine Bitart (Sensorcain-Mpf Epi 0.5%-1:[id number]) 30 ml STK -MED ONCE .ROUTE Last administered on 03/05/17 12:35; Start 03/05/17 at 11:52 ; Stop 03/05/17 at 11:53; Status DC Phenylephrine HCl 1 mg STK-MED ONCE IV ; Start 03/05/17 at 12:25; Stop 03/05/17 at 12:26; Status DC Labetalol HCl (Normodyne) 20 mg STK-MED ONCE .ROUTE ; Start 03/05/17 at 13:20; Stop 03/05/17 at 13:21; Status DC Enoxaparin Sodium (Lovenox 40mg Syringe) 40 mg Q24H SQ Last administered on 11:57; Start 03/05/17 at 13:30 Sodium Chloride 3 ml 3 ml QSHIFT PRN IV AFTER MEDS AND BLOOD DRAWS; Start 03/05 at 13:30 Lactated Ringer's (Iv Lactated Ringers) 1,000 ml @ 100 mls/hr Q10H IV Last administered on 03/08/17 05:08; Start 03/05/17 at 13:26 Naloxone HCl 0.4 mg 0.4 mg PRN Q2MIN PRN IV SEE INSTRUCTIONS; Start 03/05/17 at 13:30 Sodium Chloride 1,000 ml @ 25 mls/hr Q24H IV Last administered on 03/05/17 13 :26; Start 03/05/17 at 13:26 Hydromorphone HCl (Dilaudid Standard DIRECTOR OF PRIMARY CARE) 30 ml @ 0 mls/hr CONT PRN PRN IV PROTOCOL Last administered on 03/05/17 14:15; Start 03/05/17 at 13:30 Ondansetron HCl (Zofran) 4 mg PRN Q6HRS PRN IV NAUESA, 1ST CHOICE; Start at 13:30 Labetalol HCl (Normodyne) 10 mg PRN Q4HRS PRN IVP HYPERTENSION, SEE COMMENTS Last administered on 03/07/17 08:52; Start 03/05/17 at 17:45; Stop 03/07/17 at 12:13; Status DC Throat Lozenges (Chloraseptic) 1 spray PRN Q2HR PRN PO SORE THROAT; Start 03/06 at 10:45 Fentanyl Citrate (Fentanyl 2ml Vial) 50 mcg PRN Q2HR PRN IV PAIN Last administered on 03/07/17 20:43; Start 03/06/17 at 13:00 Labetalol HCl (Normodyne) 20 mg PRN Q4HRS PRN IVP HYPERTENSION, SEE COMMENTS Last administered on 03/08/17 10:26; Start 03/07/17 at 12:15 Enalaprilat (Vasotec) 2.5 mg Q6HRS IV Last administered on 03/08/17 05:08; Start 03/07/17 at 13:00 Active Scripts Active Reported Chlorthalidone 25 Mg Tablet 25 Mg PO DA Procardia Xl (Nifedipine) 30 Mg Tab.er.24 1 Tab PO DAILY Lovastatin 20 Mg Tablet 20 Mg PO DAILY Calcium (Calcium Carbonate) 600 Mg Tablet 600 Mg PO BID Centrum Silver Tablet (Multivits-Min/Fa/Lycopene/Lut) 1 Each Tablet 1 Each PO DAILY Synthroid (Levothyroxine Sodium) 75 Mcg Tablet 75 Mcg PO Vitals/I & O Vital Sign - Last 24 Hours 03/07/17 03/07/17 03/07/17 03/07/17 12:49 15:00 17:11 19:00 Temp 98.4 98.3 98.4 98.3 Pulse 82 89 89 93 Resp 18 18 B/P 182/89 180/91 180/91 183/84 Pulse Ox 93 92 O2 Delivery Room Air Room Air 03/07/17 03/07/17 03/07/17 03/07/17 20:20 20:37 20:43 21:13 Pulse 93 Resp 18 20 B/P 183/40 O2 Delivery Room Air Room Air Room Air 03/07/17 03/07/17 03/08/17 03/08/17 23:00 23:17 03:00 05:08 Temp 99.0 98.5 99.0 98.5 Pulse 89 89 86 86 Resp 18 18 B/P 175/78 175/78 158/73 158/73 Pulse Ox 91 90 O2 Delivery Room Air Room Air 03/08/17 03/08/17 03/08/17 07:00 10:26 11:00 Temp 98.4 98.1 98.4 98.1 Pulse 90 90 78 Resp 20 20 B/P 173/82 173/82 151/73 Pulse Ox 92 93 O2 Delivery Room Air Room Air Intake and Output 03/07/17 03/07/17 03/08/17 15:00 23:00 07:00 Intake Total 0 ml Output Total 800 ml Balance -800 ml YG HURT MD Mar 08, 2017 11:34
--- NOTE | 2017-03-08 13:19 | PDOC ---
Provider Note Provider Note she feels well. laila clears. wants solid food. +bm afeb vss abd soft nd min tender bandages dry a/p soft diet. LUCERO JOLLY MD Mar 08, 2017 13:19
[2017-03-08] MEDS: IV NORMAL SALINE 1000ML BAG 1,000 ML IV SCH ×2 (13:26→19:12)
[2017-03-08] MEDS: CHLORTHALIDONE 25 MG TABLET. PO SCH (14:03)
[2017-03-08] MEDS: NIFEDIPINE ER 30 MG TAB.ER.24H PO SCH (14:04)
[2017-03-08] MEDS: LEVOTHYROXINE 75 MCG TABLET PO SCH (14:04)
[2017-03-08] MEDS: ENOXAPARIN 40 MG/0.4 ML SYRINGE. SQ SCH (14:05)
[2017-03-08 15:00] VITALS: BP 175/77
[2017-03-08 19:00] VITALS: BP 153/68
[2017-03-09 03:00] VITALS: BP 167/80
[2017-03-09 05:47] LABS: CALCIUM 8.5 mg/dL (8.5-10.1); CREATININE 0.7 mg/dL (0.6-1.0); GFR 79.9
[2017-03-09 06:12] LABS: POTASSIUM 2.7 mmol/L (3.5-5.1)
[2017-03-09] MEDS: LEVOTHYROXINE 75 MCG TABLET PO SCH (06:41)
[2017-03-09] MEDS: POTASSIUM CHLORIDE 20 MEQ TABLET.ER. PO SCH ×3 (06:41→18:03)
[2017-03-09 07:00] VITALS: BP 175/83
[2017-03-09] MEDS: NIFEDIPINE ER 30 MG TAB.ER.24H PO SCH (08:25)
[2017-03-09] MEDS: CHLORTHALIDONE 25 MG TABLET. PO SCH (08:25)
[2017-03-09 11:00] VITALS: BP 165/82
--- NOTE | 2017-03-09 11:20 | PDOC ---
PROGRESS NOTES Subjective Subjective Patient without complaint, denies abdominal pain. No further bowel movements but passing gas. Tolerating small amounts of regular diet. Objective Objective Vital Signs Date Time Temp Pulse Resp B/P Pulse Ox O2 Delivery O2 Flow Rate FiO2 03/09/17 11:00 98.2 90 20 165/82 93 Room Air 98.2 03/06/17 20:14 2.0 Intake and Output 03/09/17 07:00 Intake Total 406 ml Output Total 700 ml Balance -294 ml Intake Oral 200 ml IV Total 206 ml Output Urine Total 700 ml # Voids 3 Physical Exam Abdomen: Normal bowel sounds, Soft, No tenderness, Other (dressings in place) Heart: Regular rate Extremities: No edema General: Alert, Oriented X3, No acute distress Lungs: Clear to auscultation Assessment Assessment Problems Medical Problems: (1) Abdominal pain Status: Acute Plan Plan of Care 1. POD #4 explor lap - doing well, continue diet as tolerated. 2. hypokalemia - replacing po today, recheck in AM. 3. HTN - BP mildly elevated on home meds, patient reports it is usually well controlled. Continue present meds and follow. 4. hypothyroidism - continue her usual replacement. Comment Review of Relevant I have reviewed the following items liyah (where applicable) has been applied. Labs Laboratory Tests Test 03/09/17 04:30 Sodium Level 141mmol/L (136-145) Potassium Level 2.7mmol/L (3.5-5.1) Chloride Level 104mmol/L (98-107) Carbon Dioxide Level 29mmol/L (21-32) Anion Gap 8 (6-14) Blood Urea Nitrogen 8mg/dL (7-20) Creatinine 0.7mg/dL (0.6-1.0) Estimated GFR (Cockcroft-Gault) 79.9 Glucose Level 102mg/dL (70-99) Calcium Level 8.5mg/dL (8.5-10.1) Laboratory Tests Test 03/09/17 04:30 Sodium Level 141mmol/L (136-145) Potassium Level 2.7mmol/L (3.5-5.1) Chloride Level 104mmol/L (98-107) Carbon Dioxide Level 29mmol/L (21-32) Anion Gap 8 (6-14) Blood Urea Nitrogen 8mg/dL (7-20) Creatinine 0.7mg/dL (0.6-1.0) Estimated GFR (Cockcroft-Gault) 79.9 Glucose Level 102mg/dL (70-99) Calcium Level 8.5mg/dL (8.5-10.1) Medications Current Medications Cefazolin Sodium/ Dextrose (Ancef 2gm Premix) 50 ml @ 100 mls/hr 1X ONCE IV Last administered on 03/05/17 12:20; Start 03/05/17 at 06:00; Stop 03/05/17 at 06:29; Status DC Ondansetron HCl (Zofran) 4 mg PRN Q6HRS PRN IV NAUSEA/VOMITING; Start 03/05/17 at 07:00; Stop 03/06/17 at 06:59; Status DC Fentanyl Citrate (Fentanyl 2ml Vial) 25 mcg PRN Q5MIN PRN IV MILD PAIN; Start 03/05/17 at 07:00; Stop 03/06/17 at 06:59; Status DC Fentanyl Citrate (Fentanyl 2ml Vial) 50 mcg PRN Q5MIN PRN IV MODERATE PAIN Last administered on 03/05/17 13:55; Start 03/05/17 at 07:00; Stop 03/06/17 at 06:59; Status DC Morphine Sulfate 1 mg 1 mg PRN Q10MIN PRN IV SEVERE PAIN; Start 03/05/17 at 07: 00; Stop 03/06/17 at 06:59; Status DC Lactated Ringer's (Iv Lactated Ringers) 1,000 ml @ 30 mls/hr Q24H IV Last administered on 03/05/17 11:14; Start 03/05/17 at 07:00; Stop 03/05/17 at 18:59 ; Status DC Lidocaine HCl 2 ml PRN 1X PRN ID PRIOR TO IV START; Start 03/05/17 at 07:00; Stop 03/06/17 at 06:59; Status DC Hydromorphone HCl (Dilaudid) 0.5 mg PRN Q10MIN PRN IV SEV PAIN, Second choice Last administered on 03/05/17 14:24; Start 03/05/17 at 07:00; Stop 03/06/17 at 06:59; Status DC Prochlorperazine Edisylate 5 mg 5 mg PACU PRN PRN IV NAUSEA, MRX1; Start at 07:00; Stop 03/06/17 at 06:59; Status DC Cefazolin Sodium/ Dextrose (Ancef 2gm Premix) 50 ml @ As Directed STK-MED ONCE IV ; Start 03/05/17 at 11:36; Stop 03/05/17 at 11:37; Status DC Sevoflurane (Ultane) 60 ml STK-MED ONCE IH ; Start 03/05/17 at 11:39; Stop 03/05 at 11:40; Status DC Fentanyl Citrate (Fentanyl 2ml Vial) 100 mcg STK-MED ONCE .ROUTE ; Start at 11:40; Stop 03/05/17 at 11:41; Status DC Glycopyrrolate (Robinul) 1 mg STK-MED ONCE .ROUTE ; Start 03/05/17 at 11:40; Stop 03/05/17 at 11:41; Status DC Neostigmine Methylsulfate 5 mg STK-MED ONCE .ROUTE ; Start 03/05/17 at 11:41; Stop 03/05/17 at 11:42; Status DC Rocuronium [place] (Zemuron) 50 mg STK-MED ONCE .ROUTE ; Start 03/05/17 at 11:41 ; Stop 03/05/17 at 11:42; Status DC Dexamethasone Sodium Phosphate (Decadron) 20 mg STK-MED ONCE .ROUTE ; Start at 11:41; Stop 03/05/17 at 11:42; Status DC Ondansetron HCl (Zofran) 4 mg STK-MED ONCE .ROUTE ; Start 03/05/17 at 11:41; Stop 03/05/17 at 11:42; Status DC Lidocaine HCl (Lidocaine HCl 2% Abboject) 100 mg STK-MED ONCE .ROUTE ; Start at 11:41; Stop 03/05/17 at 11:42; Status DC Bupivacaine HCl/ Epinephrine Bitart (Sensorcain-Mpf Epi 0.5%-1:[id number]) 30 ml STK -MED ONCE .ROUTE Last administered on 03/05/17t 12:35; Start 03/05/17 at 11:52 ; Stop 03/05/17 at 11:53; Status DC Phenylephrine HCl 1 mg STK-MED ONCE IV ; Start 03/05/17 at 12:25; Stop 03/05/17 at 12:26; Status DC Labetalol HCl (Normodyne) 20 mg STK-MED ONCE .ROUTE ; Start 03/05/17 at 13:20; Stop 03/05/17 at 13:21; Status DC Enoxaparin Sodium (Lovenox 40mg Syringe) 40 mg Q24H SQ Last administered on 14:05; Start 03/05/17 at 13:30 Sodium Chloride 3 ml 3 ml QSHIFT PRN IV AFTER MEDS AND BLOOD DRAWS; Start 03/05 at 13:30 Lactated Ringer's (Iv Lactated Ringers) 1,000 ml @ 100 mls/hr Q10H IV Last administered on 03/08/17 14:06; Start 03/05/17 at 13:26; Stop 03/09/17 at 06:12 ; Status DC Naloxone HCl 0.4 mg 0.4 mg PRN Q2MIN PRN IV SEE INSTRUCTIONS; Start 03/05/17 at 13:30 Sodium Chloride 1,000 ml @ 25 mls/hr Q24H IV Last administered on 03/05/17 13 :26; Start 03/05/17 at 13:26; Stop 03/09/17 at 06:12; Status DC Hydromorphone HCl (Dilaudid Standard [employer] INSPECTOR) 30 ml @ 0 mls/hr CONT PRN PRN IV PROTOCOL Last administered on 03/05/17 14:15; Start 03/05/17 at 13:30; Stop at 06:12; Status DC Ondansetron HCl (Zofran) 4 mg PRN Q6HRS PRN IV NAUESA, 1ST CHOICE; Start at 13:30 Labetalol HCl (Normodyne) 10 mg PRN Q4HRS PRN IVP HYPERTENSION, SEE COMMENTS Last administered on 03/07/17 08:52; Start 03/05/17 at 17:45; Stop 03/07/17 at 12:13; Status DC Throat Lozenges (Chloraseptic) 1 spray PRN Q2HR PRN PO SORE THROAT; Start 03/06 at 10:45 Fentanyl Citrate (Fentanyl 2ml Vial) 50 mcg PRN Q2HR PRN IV PAIN Last administered on 03/07/17 20:43; Start 03/06/17 at 13:00 Labetalol HCl (Normodyne) 20 mg PRN Q4HRS PRN IVP HYPERTENSION, SEE COMMENTS Last administered on 03/08/17 10:26; Start 03/07/17 at 12:15; Stop 03/08/17 at 11:31; Status DC Enalaprilat (Vasotec) 2.5 mg Q6HRS IV Last administered on 03/08/17 05:08; Start 03/07/17 at 13:00; Stop 03/08/17 at 11:31; Status DC Nifedipine (Procardia Xl) 30 mg DAILY PO Last administered on 03/09/17 08:25; Start 03/08/17 at 11:45 Chlorthalidone (Thalitone) 25 mg DAILY PO Last administered on 03/09/17 08:25 ; Start 03/08/17 at 11:45 Levothyroxine Sodium (Synthroid) 75 mcg DAILY07 PO Last administered on 06:41; Start 03/08/17 at 11:45 Potassium Chloride (Klor-Con) 20 meq TIDWMEALS PO Last administered on 06:41; Start 03/09/17 at 08:00 Active Scripts Active Reported Chlorthalidone 25 Mg Tablet 25 Mg PO DA Procardia Xl (Nifedipine) 30 Mg Tab.er.24 1 Tab PO DAILY Lovastatin 20 Mg Tablet 20 Mg PO DAILY Calcium (Calcium Carbonate) 600 Mg Tablet 600 Mg PO BID Centrum Silver Tablet (Multivits-Min/Fa/Lycopene/Lut) 1 Each Tablet 1 Each PO DAILY Synthroid (Levothyroxine Sodium) 75 Mcg Tablet 75 Mcg PO Vitals/I & O Vital Sign - Last 24 Hours 03/08/17 03/08/17 03/08/17 03/08/17 14:04 15:00 19:00 20:00 Temp 97.9 98.3 97.9 98.3 Pulse 78 86 89 Resp 16 16 B/P 151/73 175/77 153/68 Pulse Ox 94 95 O2 Delivery Room Air Room Air Room Air 03/09/17 03/09/17 03/09/17 03/09/17 03:00 07:00 08:13 08:25 Temp 98.1 98.2 98.1 98.2 Pulse 80 87 87 Resp 16 20 B/P 167/80 175/83 175/83 Pulse Ox 94 94 O2 Delivery Room Air Room Air Room Air 03/09/17 11:00 Temp 98.2 98.2 Pulse 90 Resp 20 B/P 165/82 Pulse Ox 93 O2 Delivery Room Air Intake and Output 03/08/17 03/08/17 03/09/17 15:00 23:00 07:00 Intake Total 206 ml 200 ml Output Total 700 ml Balance -494 ml 200 ml YG HURT MD Mar 09, 2017 11:20
[2017-03-09] MEDS: ENOXAPARIN 40 MG/0.4 ML SYRINGE. SQ SCH (13:13)
--- NOTE | 2017-03-09 14:39 | PDOC ---
Provider Note Provider Note feeling well. laila solid food. +bm. wants to go home tomorrow afeb vss abd soft nd nt inc cdi a/p supportive care. anticipate dc tomorrow. LUCERO JOLLY MD Mar 09, 2017 14:39
[2017-03-09 15:00] VITALS: BP 139/74
[2017-03-09 19:50] VITALS: BP 134/76
[2017-03-09 22:55] VITALS: BP 154/66
[2017-03-09 23:14] LABS: BILIRUBIN,URINE NEGATIVE (NEG); GLUCOSE,URINE NEGATIVE (NEG); NITRITE,URINE NEGATIVE (NEG); PH,URINE 7.5; PROTEIN,URINE NEGATIVE (NEG-TRACE)
[2017-03-09 23:22] LABS: BACTERIA,URINE FEW /HPF (0-FEW); RBC,URINE RARE /HPF (0-2); SQUAMOUS EPITHELIAL CELL,UR FEW /LPF
[2017-03-10 03:15] VITALS: BP 145/66
[2017-03-10] MEDS: LEVOTHYROXINE 75 MCG TABLET PO SCH (05:49)
[2017-03-10 06:32] LABS: CREATININE 0.7 mg/dL (0.6-1.0); GFR 79.9; POTASSIUM 3.4 mmol/L (3.5-5.1)
[2017-03-10 06:57] LABS: CALCIUM 8.6 mg/dL (8.5-10.1)
[2017-03-10 07:00] VITALS: BP 159/79
[2017-03-10] MEDS: NIFEDIPINE ER 30 MG TAB.ER.24H PO SCH (09:49)
[2017-03-10] MEDS: POTASSIUM CHLORIDE 20 MEQ TABLET.ER. PO SCH (09:49)
[2017-03-10] MEDS: CHLORTHALIDONE 25 MG TABLET. PO SCH (09:50)
[2017-03-10 11:00] VITALS: BP 141/77
[2017-03-10] MEDS ORDERED: DOCU-27 PO (11:20)
[2017-03-10] MEDS ORDERED: HYDR-971 PO (11:20)
--- NOTE | 2017-03-10 11:21 | PDOC ---
SURGICAL PROGRESS NOTE Subjective tolerating diet ambulating had small stool, + flatus pain minimal Vital Signs Vital Signs Date Time Temp Pulse Resp B/P Pulse Ox O2 Delivery O2 Flow Rate FiO2 03/10/17 09:49 86 159/79 03/10/17 07:00 98.4 18 91 Room Air 98.4 I&O Intake and Output 03/10/17 07:00 Output Total 1150 ml Balance -1150 ml Output Urine Total 1150 ml # Voids 6 General: Alert, Oriented X3, Cooperative, No acute distress Abdomen: Soft, No tenderness, Other (incision c/d/i, no erythema ) Labs Laboratory Tests Test 03/09/17 04:30 03/09/17 23:00 03/10/17 05:50 Sodium Level 141mmol/L (136-145) 139mmol/L (136-145) Potassium Level 2.7mmol/L (3.5-5.1) 3.4mmol/L (3.5-5.1) Chloride Level 104mmol/L (98-107) 102mmol/L (98-107) Carbon Dioxide Level 29mmol/L (21-32) 28mmol/L (21-32) Anion Gap 8 (6-14) 9 (6-14) Blood Urea Nitrogen 8mg/dL (7-20) 9mg/dL (7-20) Creatinine 0.7mg/dL (0.6-1.0) 0.7mg/dL (0.6-1.0) Estimated GFR (Cockcroft-Gault) 79.9 79.9 Glucose Level 102mg/dL (70-99) 102mg/dL (70-99) Calcium Level 8.5mg/dL (8.5-10.1) 8.6mg/dL (8.5-10.1) Urine Collection Type Unknown Urine Color Yellow Urine Clarity Clear Urine pH 7.5 Urine Specific [place] <=1.005 Urine Protein Negativemg/dL (NEG-TRACE) Urine Glucose (UA) Negativemg/dL (NEG) Urine Ketones (Stick) Negativemg/dL (NEG) Urine Blood Negative (NEG) Urine Nitrite Negative (NEG) Urine Bilirubin Negative (NEG) Urine Urobilinogen Dipstick 2.0mg/dL (0.2 mg/dL) Urine Leukocyte Esterase Trace (NEG) Urine RBC Rare/HPF (0-2) Urine WBC 1-4/HPF (0-4) Urine Squamous Epithelial Cells Few/LPF Urine Renal Epithelial Cells Occ/LPF Urine Bacteria Few/HPF (0-FEW) Urine Mucus Slight/LPF Laboratory Tests Test 03/09/17 23:00 03/10/17 05:50 Urine Collection Type Unknown Urine Color Yellow Urine Clarity Clear Urine pH 7.5 Urine Specific [place] <=1.005 Urine Protein Negativemg/dL (NEG-TRACE) Urine Glucose (UA) Negativemg/dL (NEG) Urine Ketones (Stick) Negativemg/dL (NEG) Urine Blood Negative (NEG) Urine Nitrite Negative (NEG) Urine Bilirubin Negative (NEG) Urine Urobilinogen Dipstick 2.0mg/dL (0.2 mg/dL) Urine Leukocyte Esterase Trace (NEG) Urine RBC Rare/HPF (0-2) Urine WBC 1-4/HPF (0-4) Urine Squamous Epithelial Cells Few/LPF Urine Renal Epithelial Cells Occ/LPF Urine Bacteria Few/HPF (0-FEW) Urine Mucus Slight/LPF Sodium Level 139mmol/L (136-145) Potassium Level 3.4mmol/L (3.5-5.1) Chloride Level 102mmol/L (98-107) Carbon Dioxide Level 28mmol/L (21-32) Anion Gap 9 (6-14) Blood Urea Nitrogen 9mg/dL (7-20) Creatinine 0.7mg/dL (0.6-1.0) Estimated GFR (Cockcroft-Gault) 79.9 Glucose Level 102mg/dL (70-99) Calcium Level 8.6mg/dL (8.5-10.1) Problem List Problems Medical Problems: (1) Abdominal pain Status: Acute Assessment/Plan s/p resection, mesh removal DC home FU next week Problems: NICKEL,JUN Magdaleno [employer] Mar 10, 2017 11:21
[2017-03-10] MEDS: ENOXAPARIN 40 MG/0.4 ML SYRINGE. SQ SCH (12:54)
--- NOTE | 2017-03-10 13:41 | PDOC ---
PROGRESS NOTES Subjective Subjective Patient doing well. Plan on D/C today. Good pain control and having BM's. BP stable on POP meds F/U group home 1 week Objective Objective Vital Signs Date Time Temp Pulse Resp B/P Pulse Ox O2 Delivery O2 Flow Rate FiO2 03/10/17 11:00 98.0 91 18 141/77 93 Room Air 98.0 03/06/17 20:14 2.0 Intake and Output 03/10/17 07:00 Output Total 1150 ml Balance -1150 ml Output Urine Total 1150 ml # Voids 6 Physical Exam Abdomen: Normal bowel sounds Heart: Regular rate General: Alert Lungs: Clear to auscultation Assessment Assessment Problems Medical Problems: (1) Abdominal pain Status: Acute Mesh removal and lysis of adhesions. Essential hypertension Past medical history: 1. Osteoarthritis. 2. Hypertension. 3. Hypothyroidism. 4. History of breast cancer in remission. 5. Major depression. 6. Osteopenia. 7. Osteoarthritis of the neck. Comment Review of Relevant I have reviewed the following items liyah (where applicable) has been applied. Labs Laboratory Tests Test 03/09/17 04:30 03/09/17 23:00 03/10/17 05:50 Sodium Level 141mmol/L (136-145) 139mmol/L (136-145) Potassium Level 2.7mmol/L (3.5-5.1) 3.4mmol/L (3.5-5.1) Chloride Level 104mmol/L (98-107) 102mmol/L (98-107) Carbon Dioxide Level 29mmol/L (21-32) 28mmol/L (21-32) Anion Gap 8 (6-14) 9 (6-14) Blood Urea Nitrogen 8mg/dL (7-20) 9mg/dL (7-20) Creatinine 0.7mg/dL (0.6-1.0) 0.7mg/dL (0.6-1.0) Estimated GFR (Cockcroft-Gault) 79.9 79.9 Glucose Level 102mg/dL (70-99) 102mg/dL (70-99) Calcium Level 8.5mg/dL (8.5-10.1) 8.6mg/dL (8.5-10.1) Urine Collection Type Unknown Urine Color Yellow Urine Clarity Clear Urine pH 7.5 Urine Specific [place] <=1.005 Urine Protein Negativemg/dL (NEG-TRACE) Urine Glucose (UA) Negativemg/dL (NEG) Urine Ketones (Stick) Negativemg/dL (NEG) Urine Blood Negative (NEG) Urine Nitrite Negative (NEG) Urine Bilirubin Negative (NEG) Urine Urobilinogen Dipstick 2.0mg/dL (0.2 mg/dL) Urine Leukocyte Esterase Trace (NEG) Urine RBC Rare/HPF (0-2) Urine WBC 1-4/HPF (0-4) Urine Squamous Epithelial Cells Few/LPF Urine Renal Epithelial Cells Occ/LPF Urine Bacteria Few/HPF (0-FEW) Urine Mucus Slight/LPF Laboratory Tests Test 03/09/17 23:00 03/10/17 05:50 Urine Collection Type Unknown Urine Color Yellow Urine Clarity Clear Urine pH 7.5 Urine Specific [place] <=1.005 Urine Protein Negativemg/dL (NEG-TRACE) Urine Glucose (UA) Negativemg/dL (NEG) Urine Ketones (Stick) Negativemg/dL (NEG) Urine Blood Negative (NEG) Urine Nitrite Negative (NEG) Urine Bilirubin Negative (NEG) Urine Urobilinogen Dipstick 2.0mg/dL (0.2 mg/dL) Urine Leukocyte Esterase Trace (NEG) Urine RBC Rare/HPF (0-2) Urine WBC 1-4/HPF (0-4) Urine Squamous Epithelial Cells Few/LPF Urine Renal Epithelial Cells Occ/LPF Urine Bacteria Few/HPF (0-FEW) Urine Mucus Slight/LPF Sodium Level 139mmol/L (136-145) Potassium Level 3.4mmol/L (3.5-5.1) Chloride Level 102mmol/L (98-107) Carbon Dioxide Level 28mmol/L (21-32) Anion Gap 9 (6-14) Blood Urea Nitrogen 9mg/dL (7-20) Creatinine 0.7mg/dL (0.6-1.0) Estimated GFR (Cockcroft-Gault) 79.9 Glucose Level 102mg/dL (70-99) Calcium Level 8.6mg/dL (8.5-10.1) Medications Current Medications Cefazolin Sodium/ Dextrose (Ancef 2gm Premix) 50 ml @ 100 mls/hr 1X ONCE IV Last administered on 03/05/17t 12:20; Start 03/05/17 at 06:00; Stop 03/05/17 at 06:29; Status DC Ondansetron HCl (Zofran) 4 mg PRN Q6HRS PRN IV NAUSEA/VOMITING; Start 03/05/17 at 07:00; Stop 03/06/17 at 06:59; Status DC Fentanyl Citrate (Fentanyl 2ml Vial) 25 mcg PRN Q5MIN PRN IV MILD PAIN; Start 03/05/17 at 07:00; Stop 03/06/17 at 06:59; Status DC Fentanyl Citrate (Fentanyl 2ml Vial) 50 mcg PRN Q5MIN PRN IV MODERATE PAIN Last administered on 03/05/17 13:55; Start 03/05/17 at 07:00; Stop 03/06/17 at 06:59; Status DC Morphine Sulfate 1 mg 1 mg PRN Q10MIN PRN IV SEVERE PAIN; Start 03/05/17 at 07: 00; Stop 03/06/17 at 06:59; Status DC Lactated Ringer's (Iv Lactated Ringers) 1,000 ml @ 30 mls/hr Q24H IV Last administered on 03/05/17 11:14; Start 03/05/17 at 07:00; Stop 03/05/17 at 18:59 ; Status DC Lidocaine HCl 2 ml PRN 1X PRN ID PRIOR TO IV START; Start 03/05/17 at 07:00; Stop 03/06/17 at 06:59; Status DC Hydromorphone HCl (Dilaudid) 0.5 mg PRN Q10MIN PRN IV SEV PAIN, Second choice Last administered on 03/05/17 14:24; Start 03/05/17 at 07:00; Stop 03/06/17 at 06:59; Status DC Prochlorperazine Edisylate 5 mg 5 mg PACU PRN PRN IV NAUSEA, MRX1; Start at 07:00; Stop 03/06/17 at 06:59; Status DC Cefazolin Sodium/ Dextrose (Ancef 2gm Premix) 50 ml @ As Directed STK-MED ONCE IV ; Start 03/05/17 at 11:36; Stop 03/05/17 at 11:37; Status DC Sevoflurane (Ultane) 60 ml STK-MED ONCE IH ; Start 03/05/17 at 11:39; Stop 03/05 at 11:40; Status DC Fentanyl Citrate (Fentanyl 2ml Vial) 100 mcg STK-MED ONCE .ROUTE ; Start at 11:40; Stop 03/05/17 at 11:41; Status DC Glycopyrrolate (Robinul) 1 mg STK-MED ONCE .ROUTE ; Start 03/05/17 at 11:40; Stop 03/05/17 at 11:41; Status DC Neostigmine Methylsulfate 5 mg STK-MED ONCE .ROUTE ; Start 03/05/17 at 11:41; Stop 03/05/17 at 11:42; Status DC Rocuronium [place] (Zemuron) 50 mg STK-MED ONCE .ROUTE ; Start 03/05/17 at 11:41 ; Stop 03/05/17 at 11:42; Status DC Dexamethasone Sodium Phosphate (Decadron) 20 mg STK-MED ONCE .ROUTE ; Start at 11:41; Stop 03/05/17 at 11:42; Status DC Ondansetron HCl (Zofran) 4 mg STK-MED ONCE .ROUTE ; Start 03/05/17 at 11:41; Stop 03/05/17 at 11:42; Status DC Lidocaine HCl (Lidocaine HCl 2% Abboject) 100 mg STK-MED ONCE .ROUTE ; Start at 11:41; Stop 03/05/17 at 11:42; Status DC Bupivacaine HCl/ Epinephrine Bitart (Sensorcain-Mpf Epi 0.5%-1:[id number]) 30 ml STK -MED ONCE .ROUTE Last administered on 03/05/17t 12:35; Start 03/05/17 at 11:52 ; Stop 03/05/17 at 11:53; Status DC Phenylephrine HCl 1 mg STK-MED ONCE IV ; Start 03/05/17 at 12:25; Stop 03/05/17 at 12:26; Status DC Labetalol HCl (Normodyne) 20 mg STK-MED ONCE .ROUTE ; Start 03/05/17 at 13:20; Stop 03/05/17 at 13:21; Status DC Enoxaparin Sodium (Lovenox 40mg Syringe) 40 mg Q24H SQ Last administered on t 13:13; Start 03/05/17 at 13:30 Sodium Chloride 3 ml 3 ml QSHIFT PRN IV AFTER MEDS AND BLOOD DRAWS; Start 03/05 at 13:30 Lactated Ringer's (Iv Lactated Ringers) 1,000 ml @ 100 mls/hr Q10H IV Last administered on 03/08/17 14:06; Start 03/05/17 at 13:26; Stop 03/09/17 at 06:12 ; Status DC Naloxone HCl 0.4 mg 0.4 mg PRN Q2MIN PRN IV SEE INSTRUCTIONS; Start 03/05/17 at 13:30 Sodium Chloride 1,000 ml @ 25 mls/hr Q24H IV Last administered on 03/05/17 13 :26; Start 03/05/17 at 13:26; Stop 03/09/17 at 06:12; Status DC Hydromorphone HCl (Dilaudid Standard WOOD BORER) 30 ml @ 0 mls/hr CONT PRN PRN IV PROTOCOL Last administered on 03/05/17 14:15; Start 03/05/17 at 13:30; Stop at 06:12; Status DC Ondansetron HCl (Zofran) 4 mg PRN Q6HRS PRN IV NAUESA, 1ST CHOICE; Start at 13:30 Labetalol HCl (Normodyne) 10 mg PRN Q4HRS PRN IVP HYPERTENSION, SEE COMMENTS Last administered on 03/07/17 08:52; Start 03/05/17 at 17:45; Stop 03/07/17 at 12:13; Status DC Throat Lozenges (Chloraseptic) 1 spray PRN Q2HR PRN PO SORE THROAT; Start 03/06 at 10:45 Fentanyl Citrate (Fentanyl 2ml Vial) 50 mcg PRN Q2HR PRN IV PAIN Last administered on 03/07/17 20:43; Start 03/06/17 at 13:00 Labetalol HCl (Normodyne) 20 mg PRN Q4HRS PRN IVP HYPERTENSION, SEE COMMENTS Last administered on 03/08/17 10:26; Start 03/07/17 at 12:15; Stop 03/08/17 at 11:31; Status DC Enalaprilat (Vasotec) 2.5 mg Q6HRS IV Last administered on 03/08/17 05:08; Start 03/07/17 at 13:00; Stop 03/08/17 at 11:31; Status DC Nifedipine (Procardia Xl) 30 mg DAILY PO Last administered on 03/10/17 09:49; Start 03/08/17 at 11:45 Chlorthalidone (Thalitone) 25 mg DAILY PO Last administered on 03/10/17 09:50 ; Start 03/08/17 at 11:45 Levothyroxine Sodium (Synthroid) 75 mcg DAILY07 PO Last administered on 05:49; Start 03/08/17 at 11:45 Potassium Chloride (Klor-Con) 20 meq TIDWMEALS PO Last administered on 09:49; Start 03/09/17 at 08:00 Active Scripts Active Colace (Docusate Sodium) 100 Mg Capsule 1 Cap PO BID [place] 5-325 Tablet (Acetaminophen/Hydrocodone Bitart) 1 Each Tablet 1-2 Tab PO Q4-6HRS Reported Chlorthalidone 25 Mg Tablet 25 Mg PO DA Procardia Xl (Nifedipine) 30 Mg Tab.er.24 1 Tab PO DAILY Lovastatin 20 Mg Tablet 20 Mg PO DAILY Calcium (Calcium Carbonate) 600 Mg Tablet 600 Mg PO BID Centrum Silver Tablet (Multivits-Min/Fa/Lycopene/Lut) 1 Each Tablet 1 Each PO DAILY Synthroid (Levothyroxine Sodium) 75 Mcg Tablet 75 Mcg PO Vitals/I & O Vital Sign - Last 24 Hours 03/09/17 03/09/17 03/09/17 03/09/17 15:00 19:50 20:02 22:55 Temp 98.4 98.3 98.6 98.4 98.3 98.6 Pulse 100 99 93 Resp 16 B/P 139/74 134/76 154/66 Pulse Ox 94 95 93 O2 Delivery Room Air Room Air Room Air Room Air 03/10/17 03/10/17 03/10/17 03/10/17 03:15 07:00 08:00 09:49 Temp 98.6 98.4 98.6 98.4 Pulse 86 86 86 Resp 16 18 B/P 145/66 159/79 159/79 Pulse Ox 93 91 O2 Delivery Room Air Room Air Room Air 03/10/17 11:00 Temp 98.0 98.0 Pulse 91 Resp 18 B/P 141/77 Pulse Ox 93 O2 Delivery Room Air Intake and Output 03/09/17 03/09/17 03/10/17 15:00 23:00 07:00 Output Total 1150 ml Balance -1150 ml REGINA ESCUDERO MD Mar 10, 2017 13:41
== END 2017-03-10 13:45 | disposition home or self-care (01) | DRG 331 ==
LOC: SURG 10:21 → 4 NORTH 13:26
PROVIDERS: ADMIT Surgery; ATTEND Surgery
PROC: 0DNS0ZZ (ICD-10-PCS; 2017-03-05)
PROC: 0DN80ZZ Release Small Intestine, Open Approach (ICD-10-PCS; 2017-03-05)
PROC: 0WPF0JZ Removal of Synthetic Substitute from Abdominal Wall, Open Approach (ICD-10-PCS; 2017-03-05)
PROC: 0DQ80ZZ Repair Small Intestine, Open Approach (ICD-10-PCS; 2017-03-05)
PROC: 0WJG4ZZ Inspection of Peritoneal Cavity, Percutaneous Endoscopic Approach (ICD-10-PCS; principal; 2017-03-05 12:00)
DX: K66.0 Peritoneal adhesions (postprocedural) (postinfection) (principal); I10 Essential (primary) hypertension; F32.9 Major depressive disorder, single episode, unspecified; M85.80 Other specified disorders of bone density and structure, unspecified site; Z96.651 Presence of right artificial knee joint; Z96.652 Presence of left artificial knee joint; K57.90 Diverticulosis of intestine, part unspecified, without perforation or abscess without bleeding; E03.9 Hypothyroidism, unspecified; M47.812 Spondylosis without myelopathy or radiculopathy, cervical region; Z53.31 Laparoscopic surgical procedure converted to open procedure; Z85.3 Personal history of malignant neoplasm of breast; Z98.49 Cataract extraction status, unspecified eye; Z90.11 Acquired absence of right breast and nipple
CPT/HCPCS: 36415; 74000; 80048; 81001; 85007; 85027; 87086; 88300; J0690; J1100; J1170; J1650; J2370; J2405; J2710; J3010; J3490; J7030; J7120; 97110; 97116; 97530

== ENCOUNTER → 2017-12-17 | Outpatient (CLI) | payer MEDICARE, OTHER ==
[2017-12-17 10:43] LABS: BLOOD UREA NITROGEN 17 mg/dL (7-20)
[2017-12-17 10:43] LABS: CREATININE 0.9 mg/dL (0.6-1.0); GFR 59.7
[2017-12-17] MEDS: GADOBUTROL 7.5 MMOL/7.5 ML VIAL IV ×2 (11:31)
== END | disposition home or self-care (01) ==
LOC: MRI 09:52
DX: K43.9 Ventral hernia without obstruction or gangrene (principal); M43.16 Spondylolisthesis, lumbar region; N28.1 Cyst of kidney, acquired; K57.30 Diverticulosis of large intestine without perforation or abscess without bleeding; Z98.890 Other specified postprocedural states
CPT/HCPCS: 36415; 72197; 82565; 84520; A9585

== ENCOUNTER 2017-12-23 06:35 | Inpatient (IN) | payer MEDICARE, OTHER ==
[2017-12-23] MEDS ORDERED: fentaNYL PF VIAL 100 MCG/2 ML VIAL IV ×2 (07:00)
[2017-12-23] MEDS ORDERED: PROCHLORPERAZINE 10 MG/2 ML VIAL. IV ×2 (07:00)
[2017-12-23] MEDS ORDERED: ceFAZolin 2GM PREMIX 2 GM/50 ML BAG IV ×2 (07:00)
[2017-12-23] MEDS ORDERED: HYDROmorphone 2 MG/ML VIAL IV ×2 (07:00)
[2017-12-23] MEDS ORDERED: ONDANSETRON PF 4 MG/2 ML VIAL. IV ×4 (07:00→09:00)
[2017-12-23] MEDS ORDERED: LIDOCAINE 1% PF 2 ML VIAL. ID ×2 (07:00)
[2017-12-23] MEDS: IV RINGERS,LACTATED 1000ML 1,000 ML IV ×2 (07:31)
[2017-12-23] MEDS ORDERED: ROCURONIUM 50 MG/5 ML VIAL. ×2 (07:32)
[2017-12-23] MEDS ORDERED: fentaNYL PF VIAL 250 MCG/5 ML VIAL ×2 (07:32)
[2017-12-23] MEDS ORDERED: MIDAZOLAM HCL/PF 2 MG/2 ML VIAL. ×2 (07:32)
[2017-12-23] MEDS ORDERED: LIDOCAINE 1% PF 5 ML VIAL. ×2 (08:12)
[2017-12-23] MEDS ORDERED: ONDANSETRON PF 4 MG/2 ML VIAL. ×2 (08:40)
[2017-12-23] MEDS ORDERED: PROPOFOL 20 ML IV ×2 (08:40)
[2017-12-23] MEDS ORDERED: DEXAMETHASONE SOD PHOS 20 MG/5 ML VIAL. ×2 (08:40)
[2017-12-23] MEDS: BUPIVACAINE-EPI 0.25%-1:200000 50 ML VIAL. ×2 (08:50)
[2017-12-23] MEDS ORDERED: GLYCOPYRROLATE 1 MG/5 ML VIAL. ×2 (08:58)
[2017-12-23] MEDS ORDERED: NEOSTIGMINE METHYLSULFATE 5 MG/5 ML SYRINGE. ×2 (08:58)
[2017-12-23] MEDS ORDERED: 0.9 % SODIUM CHLORIDE 10 ML DISP.SYRIN. IV ×2 (09:00)
[2017-12-23] MEDS ORDERED: SEVOFLURANE 61 TO 120 MINUTES. IH ×2 (09:31)
[2017-12-23] MEDS: fentaNYL PF VIAL 100 MCG/2 ML VIAL IV ×4 (09:45→09:53)
[2017-12-23] MEDS: MORPHINE SULFATE 2 MG/ML DISP.SYRIN. IV ×4 (10:23→11:12)
[2017-12-23] MEDS: hydrALAZINE 20 MG/ML VIAL. IVP ×4 (10:36→11:00)
[2017-12-23] MEDS ORDERED: hydrALAZINE 20 MG/ML VIAL. IVP ×2 (11:00)
[2017-12-23] MEDS: CALCIUM CARBONATE 500 MG TABLET PO ×2 (17:11)
[2017-12-23] MEDS: ATORVASTATIN CALCIUM 10 MG TABLET. PO ×2 (21:54)
[2017-12-23] MEDS: DOCUSATE SODIUM 100 MG CAPSULE. PO ×2 (21:54)
[2017-12-23] MEDS: HYDROcodone/APAP 5/325MG 1 TAB TABLET PO ×2 (21:54)
[2017-12-24] MEDS: HYDROcodone/APAP 5/325MG 1 TAB TABLET PO ×2 (02:08)
[2017-12-24] MEDS: LEVOTHYROXINE 100 MCG TABLET PO ×2 (07:54)
[2017-12-24] MEDS: MULTIVITAMIN with MINERAL TABLET. PO ×2 (07:54)
[2017-12-24] MEDS: CALCIUM CARBONATE 500 MG TABLET PO ×2 (07:54)
[2017-12-24] MEDS: DOCUSATE SODIUM 100 MG CAPSULE. PO ×2 (07:54)
[2017-12-24] MEDS: POLYETHYLENE GLYCOL 3350 17 GM PACKET. PO ×2 (08:02)
[2017-12-24] MEDS: ENOXAPARIN 40 MG/0.4 ML SYRINGE. SQ ×2 (08:03)
== END 2017-12-24 11:24 | disposition home or self-care (01) | DRG 355 ==
LOC: SURG 06:35 → 4 NORTH 09:00
PROC: 0WUF0JZ Supplement Abdominal Wall with Synthetic Substitute, Open Approach (ICD-10-PCS; principal; 2017-12-23 08:00)
DX: K43.2 Incisional hernia without obstruction or gangrene (principal); E03.9 Hypothyroidism, unspecified; M47.892 Other spondylosis, cervical region; F32.9 Major depressive disorder, single episode, unspecified; I10 Essential (primary) hypertension; Z96.653 Presence of artificial knee joint, bilateral; M85.80 Other specified disorders of bone density and structure, unspecified site; Z82.49 Family history of ischemic heart disease and other diseases of the circulatory system; Z88.1 Allergy status to other antibiotic agents; Z88.6 Allergy status to analgesic agent; Z88.2 Allergy status to sulfonamides; Z83.6 Family history of other diseases of the respiratory system; Z98.49 Cataract extraction status, unspecified eye; Z90.11 Acquired absence of right breast and nipple; Z98.1 Arthrodesis status; Z85.3 Personal history of malignant neoplasm of breast
CPT/HCPCS: 88302; J0360; J0690; J1100; J1650; J2250; J2270; J2405; J2704; J2710; J3010; J3490; J7120

== ENCOUNTER → 2018-11-27 | Outpatient (CLI) | payer MEDICARE, OTHER ==
[2017-12-24 08:01] VITALS: BP 142/75
[~2018-11-27] MED LIST changes: -CEFAZOLIN 2GM PREMIX 50 ML IV ONE; -CHLO25TA PO; +CHLO25TA10 PO; +DOCU-109 PO; -FENTANYL PF 100 MCG/2 ML VIAL. IV PRN; +HYDR-3164 PO; -HYDR-971 PO; -HYDROmorphone 2 MG/ML VIAL IV PRN; -IV RINGERS,LACTATED 1000ML 1,000 ML IV SCH; -LIDOCAINE 1% 1 ML SYRINGE. ID PRN; -MORPHINE SULFATE 2 MG/ML DISP.SYRIN. IV PRN; -NIFE10CA2 PO; +NIFE10CA48 PO; -ONDANSETRON PF 4 MG/2 ML VIAL. IV PRN; +POLY17PO29 PO; -PROCHLORPERAZINE 10 MG/2 ML VIAL. IV PRN
--- NOTE | 2018-11-27 08:42 | RAD ---
CT of the head without contrast, 11/27/2018: HISTORY: Follow-up TIA, slurred speech The ventricles are within normal limits in size. There is no shift of the midline structures. There is no evidence of acute intracranial hemorrhage or mass effect. There are moderate patchy lucencies in the deep white matter bilaterally. In older patients these findings are typically due to small vessel chronic ischemic change. There is also a small lucency in the anterior basal ganglia region on the right suggesting an old to subacute infarct. No abnormal extra-axial fluid collection or mass is seen. There is calcific plaquing of the distal internal carotid and vertebral arteries. Air-fluid levels are present in both maxillary sinuses. There is mucosal thickening in the ethmoid sinuses, left greater than right. IMPRESSION: 1. Moderate bilateral deep white matter lucencies compatible with chronic ischemic change. 2. Right basal ganglia lucency suggesting an old or subacute infarct. 3. Bilateral paranasal sinusitis. PQRS Compliance Statement: One or more of the following individualized dose reduction techniques were utilized for this examination: 1. Automated exposure control 2. Adjustment of the mA and/or kV according to patient size 3. Use of iterative reconstruction technique Electronically signed by: Kj Adams MD (11/27/2018 8:38 AM) [facility]
--- NOTE | 2018-11-27 08:44 | RAD ---
Carotid ultrasound, 11/27/2018: HISTORY: TIA Duplex evaluation of the carotid arteries and neck was performed including grayscale, color-flow and spectral Doppler analysis. There are mild scattered atherosclerotic plaques bilaterally, some which demonstrate minimal calcification. The peak systolic velocity in the right internal carotid artery is 77 cm per sec with an end-diastolic velocity of 21 cm/s and an internal carotid to common carotid artery ratio of 0.9. The peak systolic velocity in the left internal carotid artery is 81 cm/s with an end-diastolic velocity of 24 cm/s and an internal carotid to common carotid artery ratio 1.3. These findings do not suggest significant stenosis. Antegrade flow is present in both vertebral arteries in the neck. IMPRESSION: Mild scattered atherosclerotic plaquing bilaterally with no duplex evidence of a significant stenosis at either carotid bifurcation. Note: Stenosis calculations for CT, MRA and conventional angiography are based upon determination of the distal ICA diameter in accordance with the NASCET methodology. Stenosis calculations for Doppler studies are derived from validated velocity criteria which are known to correlate with NASCET methodology of determining stenosis. Electronically signed by: Kj Adams MD (11/27/2018 8:40 AM) [facility]
== END | disposition home or self-care (01) ==
LOC: US 06:28
PROVIDERS: ATTEND Family Medicine
DX: J32.4 Chronic pansinusitis (principal); I70.8 Atherosclerosis of other arteries; R90.82 White matter disease, unspecified; Z86.73 Personal history of transient ischemic attack (TIA), and cerebral infarction without residual deficits
CPT/HCPCS: 70450; 93880

== ENCOUNTER → 2019-02-02 | Outpatient (CLI) | payer MEDICARE, OTHER ==
[2017-12-24 08:01] VITALS: BP 142/75
--- NOTE | 2019-02-02 16:32 | KCIC ---
MRI of the brain without contrast 02/02/2019 Clinical History: TIAs in November of this year. Speech difficulty. Technique: Unenhanced T1-weighted sagittal and axial, T2-weighted axial and coronal and FLAIR, gradient echo and diffusion-weighted axial images of the brain were obtained. Findings: Comparison is made to patient's CT scan of the head dated 11/27/2018. There is generalized parenchymal atrophy. Patchy, confluent and multiple focal areas of increased signal intensity are seen within the periventricular and subcortical white matter of both cerebral hemispheres along with the ke on the FLAIR and T2-weighted images consistent with areas of extensive small vessel ischemic disease. No acute parenchymal abnormality is seen. No extra-axial fluid collection is seen. There is no MRI evidence of acute ischemia/infarction. Mild mucosal thickening is seen scattered throughout the paranasal sinuses. Normal flow voids are seen within the major vascular structures surrounding the brain parenchyma. Impression: No acute parenchymal abnormality is seen. Electronically signed by: Moise Rea MD (02/02/2019 4:30 PM) [id number]
== END | disposition home or self-care (01) ==
LOC: KCIC MRI 12:24
PROVIDERS: ATTEND Psychiatry & Neurology Neurology with Special Qualifications in Child Neurology
DX: G45.9 Transient cerebral ischemic attack, unspecified (principal); G31.9 Degenerative disease of nervous system, unspecified
CPT/HCPCS: 70551

== ENCOUNTER → 2019-02-03 | Outpatient (CLI) | payer MEDICARE, OTHER ==
[2017-12-24 08:01] VITALS: BP 142/75
--- NOTE | 2019-02-03 12:46 | CARD ---
MR#: [id number] Date of Study: 02/03/2019 Ordering Physician: J LUIS FRAZIER, Referring Physician: J LUIS FRAZIER Tech: Esperanza Olivier RDCS APPROVED REPORT EXAM: Two-dimensional and M-mode echocardiogram with Doppler and color Doppler. Other Information Quality : Good INDICATION CVA/TIA Echo Enhancing Agent Agent/Amount Used: Agitated Saline 8mL 2D DIMENSIONS RVDd3.2 (2.9-3.5cm)Left Atrium(2D)3.5 (1.6-4.0cm) IVSd0.9 (0.7-1.1cm)Aortic Root(2D)2.8 (2.0-3.7cm) LVDd4.2 (3.9-5.9cm)LVOT Diameter2.1 (1.8-2.4cm) PWd0.9 (0.7-1.1cm)LVDs2.5 (2.5-4.0cm) FS (%) 30.0 %SV55.1 ml LVEF(%)60.0 (>50%) Aortic Valve AoV Peak Jose.145.4cm/sAoV VTI33.1cm AO Peak GR.8.5mmHgLVOT Peak Jose.106.8cm/s LVOT VTI 24.93cmAO Mean GR.5mmHg JESSICA (VMAX)2.09bo7GYO (VTI)2.52cm2 Mitral Valve MV E Yrgqodoc05.9cm/sMV DECEL IOZP152sl MV A Hiveplqy791.9cm/sMV MLW78ri E/A Ratio0.8MVA (PHT)3.45cm2 TDI E/Lateral E'9.6E/Medial E'13.1 Tricuspid Valve TR P. Lpddzzrk863aq/sRAP LVUHIKPN7mnGy TR Peak Gr.81hgEiIJWA48lfFu Pulmonary Vein S1 Vjvdfvln23.6cm/sD2 Urvqywuq03.0cm/s LEFT VENTRICLE The left ventricle is normal size. There is normal left ventricular wall thickness. The left ventricu lar systolic function is normal and the ejection fraction is within normal range. The Ejection Fracti on is 55-60%. There is normal LV segmental wall motion. Transmitral Doppler flow pattern is Grade I-a bnormal relaxation pattern. RIGHT VENTRICLE The right ventricle is normal size. The right ventricular systolic function is normal. ATRIA The left atrium size is normal. The right atrium size is normal. The interatrial septum is intact wit h no evidence for an atrial septal defect or patent foramen ovale as noted on 2-D or Doppler imaging. Injection of bubbles documented no interatrial shunt. Normal bubble study. AORTIC VALVE The aortic valve is calcified but opens well. Doppler and Color Flow revealed no significant aortic r egurgitation. There is no significant aortic valvular stenosis. MITRAL VALVE The mitral valve is calcified but opens well. Posterior mitral annular calcification is mild. There i s no evidence of mitral valve prolapse. There is no mitral valve stenosis. Doppler and Color-flow rev ealed mild mitral regurgitation. TRICUSPID VALVE The tricuspid valve is normal in structure and function. The PA pressure was estimated at 31 mmHg. Do ppler and Color Flow revealed trace to mild tricuspid regurgitation. There is no tricuspid valve sten osis. PULMONIC VALVE The pulmonic valve is not well visualized. Doppler and Color Flow revealed trace pulmonic valvular re gurgitation. There is no pulmonic valvular stenosis. GREAT VESSELS The aortic root is normal in size. The ascending aorta is normal in size. The IVC is normal in size a nd collapses >50% with inspiration. PERICARDIAL EFFUSION There is no evidence of significant pericardial effusion. Critical Notification Critical Value: No <Conclusion> The left ventricle is normal size. The left ventricular systolic function is normal and the ejection fraction is within normal range. The Ejection Fraction is 55-60%. The interatrial septum is intact with no evidence for an atrial septal defect or patent foramen ovale as noted on 2-D or Doppler imaging. Injection of bubbles documented no interatrial shunt. Normal bubble study. There is no significant aortic valvular stenosis. Doppler and Color Flow revealed no significant aortic regurgitation. Doppler and Color-flow revealed mild mitral regurgitation. The PA pressure was estimated at 31 mmHg. Doppler and Color Flow revealed trace to mild tricuspid regurgitation. Signed by : Coy Christianson MD Electronically Approved : 02/03/2019 12:45:56
== END | disposition home or self-care (01) ==
LOC: ECHO 08:51
PROVIDERS: ATTEND Psychiatry & Neurology Neurology with Special Qualifications in Child Neurology
DX: I08.1 Rheumatic disorders of both mitral and tricuspid valves (principal); G45.9 Transient cerebral ischemic attack, unspecified
CPT/HCPCS: 93306